=== PATIENT | female | born 1935 | race Caucasian/White ===

== ENCOUNTER 2017-06-26 01:23 | Emergency (ER) | payer OTHER, MEDICAID ==
[2017-06-26 01:31] VITALS: BP 143/77; BMI 28.1
--- NOTE | 2017-06-26 01:54 | DR.GENAD ---
HPI - PCP Primary Care Physician: NIKITA - HPI Comment HPI Comment: PROBLEM STANDING ON LLE. NO BACK PAIN. ABRASION TO LT ELBOW WITH B PAIN. ROM LT ELBOW INTACT. - Complaint/Symptoms Chief Complaint Doctors Comments: FALL TONIGHT. LEFT GROIN AND LT HIP PAIN, LEFT ELBOW ABRSION. NO LOC. Chief Complaint:: PT FELL AT HOME C/O PAIN TO LT GROIN AREA AND ABRASION TOO LT ELBOW - Nurses notes reviewed Nurses Notes Review: Yes - Source History Provided: Patient - Mode of Arrival Mode of Arrival: Wheelchair - Timing Onset of Chief Complaint: 06/26/17 PMH - PMH Past Medical History: Yes Past Medical History: Angina, [place] Past Surgical History: Yes Surgical History: Appendectomy, CABG/Valve Surgery, Cholecystectomy, Hysterectomy, Other Past Surgical History Comment: 3 BACK SURGERY - Family History History of Family Medical Conditions: Yes Family Medical History: Cancer, [place], Coronary Artery Disease, Hypertension - Social History Does patient currently use any type of tobacco product: No Have you used tobacco products in the last 12 months: No Does any household member use tobacco: No Alcohol Use: None Do you use any recreational Drugs:: No Lives With: Family Lives Where: Home - infectious screening In the last 2 months have you had wt loss of >10#?: NO Have you had fever, night sweats or hemotysis?: No Have you traveled outside the country in the last 6 months?: No Isolation: Standard ROS - Review of Systems Constitutional: No Symptoms Reported Eyes: No Symptoms Reported ENTM: No Symptoms Reported Respiratoy: No Symptoms Reported Cardiovascular: No Symptoms Reported Gastrointestinal/Abdominal: No Symptoms Reported Genitourinary: No Symptoms Reported Neurological: No Symptoms Reported Musculoskeletal: Left, Hip Integumentary: Bruises (ABRSION LT ELBOW) Hematologic/Lymphatic: Easy Bleeding, Easy Bruising Endocrine: No Symptoms Reported All Other Systems: Reviewed and Negative PE - Vital Signs Vitals: Temperature 97.7 F Pulse Rate 66 Respiratory Rate 18 Blood Pressure [Left Arm] 118/58 Blood Pressure [Right Arm] 142/67 Blood Pressure 143/77 O2 Sat by Pulse Oximetry 99 - General Limitations: No Limitations General Appearance: Alert - Head Head Exam: Normal Inspection - Eyes Eye exam: Normal Appearance - ENT ENT Exam: Normal External Ear Exam External Ear Exam: Normal External Inspection TM/Canal Exam: Bilateral Normal Nose Exam: Normal Nose Exam Mouth Exam: Normal Inspection Throat Exam: Normal Inspection - Neck Neck Exam: Trachea Midline - Chest Chest Inspection: Symmetric Chest Wall Rise - Respiratory Respiratory Exam: Normal Lung Sounds Bilat Respiratory Exam: Bilateral Rhonchi, Lower Rhonchi - Cardiovascular Cardiovascular Exam: Regular Rate, Normal Rhythm, Normal Heart Sounds - Abdominal Exam Abdominal Exam: Normal Bowel Sounds, Soft. negative: Tenderness - Extremities Extremities Exam: Tenderness (LT HIP, ROM DECREASE.) - Back Back Exam: Normal Inspection - Neurologic Neurological Exam: Alert, Oriented X3 - Psychiatric Psychiatric Exam: Anxious - Skin Skin Exam: Erythema MDM - Differential Diagnosis Differential Diagnosis: CONTUSION, FRATURE, SPRAIN LEFT HIP. SKIN TEAR LE Course - Treatment Treatment: SEE ORDERS. IM PAIN MED IN ED. - Reevaluation 1st: Improved (PAIN DECREASING.) - Education/Counseling Education/Counseling: Patient, Family, Education Educated On: Treatment, Diagnosis, Needs for Follow Up ROR - Labs Reviewed Laboratory Results Reviewed?: Yes Result Diagrams: 06/26/17 02:05 06/26/17 02:05 Laboratory: WBC 9.7 X10^3/uL (3.6-10.0) 06/26/17 02:05 RBC 4.02 X10^6/uL (3.5-5.4) 06/26/17 02:05 Hgb 13.4 g/dL (12.0-16.0) 06/26/17 02:05 Hct 38.7 % (36.0-47.0) 06/26/17 02:05 MCV 96.5 fL (80.0-100.0) 06/26/17 02:05 MCH 33.4 pg (27.0-34.0) 06/26/17 02:05 MCHC 34.7 g/dL (33.0-35.0) 06/26/17 02:05 RDW 13.9 % (11.6-16.5) 06/26/17 02:05 Plt Count 282 X10^3/uL (150.0-450.0) 06/26/17 02:05 MPV 8.0 fL (7.4-11.0) 06/26/17 02:05 Neut % 48.7 % (42.0-75.0) 06/26/17 02:05 Lymph % 42.1 % (21.0-51.0) 06/26/17 02:05 Pershing % 7.5 % (0.0-13.0) 06/26/17 02:05 Eos % 1.0 % (0.9-2.9) 06/26/17 02:05 Baso % 0.7 % (0.2-1.0) 06/26/17 02:05 Neut # 4.7 x10^3/uL (2.2-4.8) 06/26/17 02:05 Lymph # 4.1 X10^3/uL (1.3-2.9) H 06/26/17 02:05 Pershing # 0.7 x10^3/uL (0.3-0.8) 06/26/17 02:05 Eos # 0.1 x10^3/uL (0.0-0.2) 06/26/17 02:05 Baso # 0.1 X10^3/uL (0.0-0.1) 06/26/17 02:05 Absolute Nucleated RBC 0.1 /100WBC 06/26/17 02:05 Sodium 134 mmol/L (136-145) L 06/26/17 02:05 Corrected Sodium 135 mmol/L (136-145) L 06/26/17 02:05 Potassium 4.2 mmol/L (3.5-5.1) 06/26/17 02:05 Chloride 97 mmol/L (98-107) L 06/26/17 02:05 Carbon Dioxide 32.9 mmol/L (21-32) H 06/26/17 02:05 BUN 18 mg/dL (7-18) 06/26/17 02:05 Creatinine 1.06 mg/dL (0.55-1.02) H 06/26/17 02:05 Est GFR (MDRD) Af Amer > 60 (>60) 06/26/17 02:05 Est GFR (MDRD) Non-Af 53 (>60) L 06/26/17 02:05 Glucose 126 mg/dL (65-99) H 06/26/17 02:05 Calcium 8.9 mg/dL (8.5-10.1) 06/26/17 02:05 Corrected Calcium 9.6 mg/dL (8.5-10.1) 06/26/17 02:05 Total Bilirubin 0.20 mg/dL (0.2-1.0) 06/26/17 02:05 AST 20 Units/L (15-37) 06/26/17 02:05 ALT 21 Units/L (12-78) 06/26/17 02:05 Alkaline Phosphatase 53 Units/L (46-116) 06/26/17 02:05 Creatine Kinase 44 Units/L (26-192) 06/26/17 02:05 CK-MB (CK-2) < 1.0 ng/mL (0-4.0) 06/26/17 02:05 CK/CKMB % Calc 2.3 % (<4) 06/26/17 02:05 Troponin I < 0.02 ng/mL (0-1.5) 06/26/17 02:05 Total Protein 7.0 g/dL (6.4-8.2) 06/26/17 02:05 Albumin 3.1 g/dL (3.4-5.0) L 06/26/17 02:05 Globulin 3.9 g/dL (2.5-4.5) 06/26/17 02:05 Albumin/Globulin Ratio 0.8 Ratio (1.1-2.1) L 06/26/17 02:05 - XRAY XRAY Interpreted by: Radiologist XRAY Findings: REPORT DISCUSS WITH PATIENT. - EKG Rhythm: NSR (EKG NOTED) - Diagnosis Discharge Problem: Hip sprain Qualifiers: Encounter type: initial encounter Laterality: left Qualified Code(s): S73.102A - Unspecified sprain of left hip, initial encounter - Discharge Plan Disposition: 01 HOME, SELF-CARE Condition: Stable - Follow ups/Referrals Follow ups/Referrals: Juan Diego Marcus [Primary Care Provider] - 1 day - Instructions Instructions: Hip Pain, Skin Tear Care, [id number] Additional Instructions: return to ed if worse. continue with med for pain you have at home.
[2017-06-26] MEDS ORDERED: ZOFRAN INJ 4 MG VIAL IM ONE (02:02)
--- NOTE | 2017-06-26 02:02 | RAD ---
EXAM: Left hip x-ray INDICATION: Hip Pain COMPARISION: No priors for comparison TECHNIQUE: Two views FINDINGS: No acute fracture or dislocation identified. Moderate degenerative changes are present in both hips. Visualized bones of the pelvis are intact. The proximal right femur is intact. IMPRESSION: No acute abnormality identified. Reported By:
[2017-06-26] MEDS ORDERED: DEMEROL INJ IM ONE (02:06)
[2017-06-26] MEDS ORDERED: ZOFRAN INJ 4 MG VIAL ONE (02:07)
[2017-06-26] MEDS ORDERED: DEMEROL INJ ONE (02:07)
[2017-06-26 02:13] LABS: BASOPHILS # (AUTO) 0.1 X10^3/uL (0.0-0.1); BASOPHILS % (AUTO) 0.7 % (0.2-1.0); EOSINOPHILS # (AUTO) 0.1 x10^3/uL (0.0-0.2); HEMATOCRIT 38.7 % (36.0-47.0); HEMOGLOBIN 13.4 g/dL (12.0-16.0); LYMPHOCYTES # (AUTO) 4.1 X10^3/uL (1.3-2.9); LYMPHOCYTES % (AUTO) 42.1 % (21.0-51.0); MEAN CORPUSCULAR HEMOGLOBIN 33.4 pg (27.0-34.0); MEAN CORPUSCULAR HGB CONC 34.7 g/dL (33.0-35.0); MEAN CORPUSCULAR VOLUME 96.5 fL (80.0-100.0); MONOCYTES # (AUTO) 0.7 x10^3/uL (0.3-0.8); MONOCYTES % (AUTO) 7.5 % (0.0-13.0); NEUTROPHILS # (AUTO) 4.7 x10^3/uL (2.2-4.8); NEUTROPHILS % (AUTO) 48.7 % (42.0-75.0); PLATELET COUNT 282 X10^3/uL (150.0-450.0); RED BLOOD COUNT 4.02 X10^6/uL (3.5-5.4); RED CELL DISTRIBUTION WIDTH 13.9 % (11.6-16.5); WHITE BLOOD COUNT 9.7 X10^3/uL (3.6-10.0)
[2017-06-26 02:28] LABS: BLOOD UREA NITROGEN 18 mg/dL (7-18); CALCIUM 8.9 mg/dL (8.5-10.1); CARBON DIOXIDE 32.9 mmol/L (21-32); CHLORIDE 97 mmol/L (98-107); COR NA(FOR HYPERGLY) 135 mmol/L (136-145); CREATININE 1.06 mg/dL (0.55-1.02); GLUCOSE 126 mg/dL (65-99); SODIUM 134 mmol/L (136-145); TROPONIN I < 0.02 ng/mL (0-1.5); eGFR BLACK RACES > 60 (>60); eGFR NON BLACK RACES 53 (>60)
[2017-06-26 02:33] LABS: ALANINE AMINOTRANSFERASE 21 Units/L (12-78); ALBUMIN 3.1 g/dL (3.4-5.0); ALKALINE PHOSPHATASE 53 Units/L (46-116); ASPARTATE AMINO TRANSFERASE 20 Units/L (15-37); CKMB % 2.3 % (<4); COR CA(FOR HYPOALB) 9.6 mg/dL (8.5-10.1); CREATINE KINASE 44 Units/L (26-192); CREATINE KINASE MB < 1.0 ng/mL (0-4.0)
[2017-06-26] MEDS ORDERED: NEOSPORIN OINT ONE (02:52)
== END 2017-06-26 02:51 | disposition home or self-care (01) ==
LOC: ER 01:23
DX: S73.102A Unspecified sprain of left hip, initial encounter (principal); W19.XXXA Unspecified fall, initial encounter; Y92.009 Unspecified place in unspecified non-institutional (private) residence as the place of occurrence of the external cause; R94.31 Abnormal electrocardiogram [ECG] [EKG]
CPT/HCPCS: 36415; 73501; 80053; 82550; 82553; 84484; 85025; 93005; 96372; 99283; J2175; J2405

== ENCOUNTER 2017-06-26 17:37 | Observation (INO) | payer OTHER, MEDICAID ==
--- NOTE | 2017-06-26 17:55 | CT ---
CT head without contrast Indication: Altered mental status, concern for stroke Comparison: None Technique: CT images of the head were obtained without contrast. Automatic exposure control was util ized. Findings: There is moderate generalized age-appropriate brain atrophy with concomitant ventricular a nd sulcal enlargement. There are patchy areas of periventricular and deep white matter hypoattenuati on, most suggestive for chronic microangiopathy. Old lacunar infarcts of the bilateral basal ganglia are noted. There is left occipital encephalomalacia, consistent with remote infarct. No acute bleed , mass effect, or abnormal extra-axial collection is identified. No acute skeletal abnormality ident ified. The visualized paranasal sinuses and mastoid air cells are clear. Impression: No acute intracranial abnormality is identified. Chronic findings as above. Reported By:
--- NOTE | 2017-06-26 18:17 | DR.AMS ---
HPI - Time Seen Time seen: 18:00 - PCP Primary Care Physician: rajat - Complaint Cheif Complaint Doctors Comments: Pt has been confused today. She was seen in ED last night for a fall. Chief Complaint:: ams. pt will make eye contact and attempt to answer questions but only able to respond with letters, like spelling the word out. does not make sense Self Treatment fo Chief Complaint: pt fell last night around midnight and was seen in the er for that. 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 instead of her normal bedtime dose.) PMH - PMH Past Medical History: Yes Past Medical History: Angina, Arthritis, Coronary Artery Disease, Dyslipidemia, Hypertension, [place], Sleep Apnea Past Surgical History: Yes Surgical History: Abdominal Surgery, Appendectomy, CABG/Valve Surgery, Cholecystectomy, Hysterectomy, Other Past Surgical History Comment: back - Family History History of Family Medical Conditions: Yes Family Medical History: Cancer, [place], Coronary Artery Disease, Hypertension - Social History Does patient currently use any type of tobacco product: No Alcohol Use: None Do you use any recreational Drugs:: No Lives With: Alone Lives Where: Home - infectious screening In the last 2 months have you had wt loss of >10#?: NO Have you had fever, night sweats or hemotysis?: No Have you traveled outside the country in the last 6 months?: No Isolation: Standard ROS - Review of Systems Constitutional: No Symptoms Reported Eyes: No Symptoms Reported ENTM: No Symptoms Reported Respiratoy: No Symptoms Reported Cardiovascular: No Symptoms Reported Gastrointestinal/Abdominal: No Symptoms Reported Genitourinary: No Symptoms Reported Neurological: Other (more lethargic today per family) Musculoskeletal: Right, Left (pain), Hip Integumentary: No Symptoms Reported Hematologic/Lymphatic: No Symptoms Reported Endocrine: No Symptoms Reported Psychiatric: No Symptoms Reported All Other Systems: Reviewed and Negative PE - Vitals Vital Signs: Pulse Pulse Resp BP BP BP Pulse Ox 06/26/17 20:03 100 H 16 106/51 94 L 06/26/17 17:42 105 H 20 126/76 73 L 06/26/17 01:25 143/77 05/26/15 08:00 142/67 09/21/14 12:00 118/58 - General Limitations: No Limitations General Appearance: Alert, In No Apparent Distress - Head Head Exam: Normal Inspection, Atraumatic - Eyes Eye exam: Normal Appearance, PERRL, EOMI - ENT ENT Exam: Normal Exam, Normal Oropharynx, Mucous Membranes Moist External Ear Exam: Normal External Inspection TM/Canal Exam: Bilateral Normal Nose Exam: Normal Nose Exam Mouth Exam: Normal Inspection Throat Exam: Normal Inspection - Neck Neck Exam: Normal Inspection, Full ROM, Trachea Midline - Chest Chest Inspection: Normal Inspection - Respiratory Respiratory Exam: Normal Lung Sounds Bilat Respiratory Exam: Bilateral Clear to Auscultation - Cardiovascular Cardiovascular Exam: Regular Rate, Normal Rhythm, Normal Heart Sounds - Abdominal Exam Abdominal Exam: Normal Inspection, Normal Bowel Sounds - Extremities Extremities Exam: Normal Inspection - Back Back Exam: Normal Inspection - Neurological Neurological Exam: Alert, Oriented X3 (oriented to person and place), CN II-XII Intact Speech: Fluid Speech Cranial Nerve Exam: EOM Function (II, III, IV, ): Normal, Facial Sensation (V) : Normal, Facial Palsy (VII): Normal, Gag reflex (XI): Normal, Spinal Accessory Function (XI): Normal, Tongue Deviation: Normal - Psychological Psychiatric Exam: Normal Affect, Normal Mood - Skin Skin Exam: Warm, Dry, Intact, Normal Color ROR - Labs Reviewed Result Diagrams: 06/26/17 18:17 06/26/17 18:17 Laboratory: WBC 11.0 X10^3/uL (3.6-10.0) H 06/26/17 18:17 RBC 4.09 X10^6/uL (3.5-5.4) 06/26/17 18:17 Hgb 13.7 g/dL (12.0-16.0) 06/26/17 18:17 Hct 39.8 % (36.0-47.0) 06/26/17 18:17 MCV 97.2 fL (80.0-100.0) 06/26/17 18:17 MCH 33.4 pg (27.0-34.0) 06/26/17 18:17 MCHC 34.3 g/dL (33.0-35.0) 06/26/17 18:17 RDW 13.9 % (11.6-16.5) 06/26/17 18:17 Plt Count 290 X10^3/uL (150.0-450.0) 06/26/17 18:17 MPV 7.7 fL (7.4-11.0) 06/26/17 18:17 Neut % 70.3 % (42.0-75.0) 06/26/17 18:17 Lymph % 21.1 % (21.0-51.0) 06/26/17 18:17 [place] % 6.3 % (0.0-13.0) 06/26/17 18:17 Eos % 1.7 % (0.9-2.9) 06/26/17 18:17 Baso % 0.6 % (0.2-1.0) 06/26/17 18:17 Neut # 7.7 x10^3/uL (2.2-4.8) H 06/26/17 18:17 Lymph # 2.3 X10^3/uL (1.3-2.9) 06/26/17 18:17 [place] # 0.7 x10^3/uL (0.3-0.8) 06/26/17 18:17 Eos # 0.2 x10^3/uL (0.0-0.2) 06/26/17 18:17 Baso # 0.1 X10^3/uL (0.0-0.1) 06/26/17 18:17 Absolute Nucleated RBC 0.0 /100WBC 06/26/17 18:17 D-Dimer > 5000 ng/mL (0-400) H* 06/26/17 18:17 Sodium 132 mmol/L (136-145) L 06/26/17 18:17 Corrected Sodium TNP 06/26/17 18:17 Potassium 5.1 mmol/L (3.5-5.1) 06/26/17 18:17 Chloride 98 mmol/L (98-107) 06/26/17 18:17 Carbon Dioxide 32.3 mmol/L (21-32) H 06/26/17 18:17 BUN 24 mg/dL (7-18) H 06/26/17 18:17 Creatinine 1.35 mg/dL (0.55-1.02) H 06/26/17 18:17 Est GFR (MDRD) Af Amer 48 (>60) L 06/26/17 18:17 Est GFR (MDRD) Non-Af 40 (>60) L 06/26/17 18:17 Glucose 110 mg/dL (65-99) H 06/26/17 18:17 Calcium 9.9 mg/dL (8.5-10.1) 06/26/17 18:17 Corrected Calcium 10.6 mg/dL (8.5-10.1) H 06/26/17 18:17 Total Bilirubin 0.50 mg/dL (0.2-1.0) 06/26/17 18:17 AST 22 Units/L (15-37) 06/26/17 18:17 ALT 22 Units/L (12-78) 06/26/17 18:17 Alkaline Phosphatase 55 Units/L (46-116) 06/26/17 18:17 Creatine Kinase 43 Units/L (26-192) 06/26/17 18:17 CK-MB (CK-2) < 1.0 ng/mL (0-4.0) 06/26/17 18:17 CK/CKMB % Calc 2.3 % (<4) 06/26/17 18:17 Troponin I 0.04 ng/mL (0-1.5) 06/26/17 18:17 Total Protein 7.1 g/dL (6.4-8.2) 06/26/17 18:17 Albumin 3.1 g/dL (3.4-5.0) L 06/26/17 18:17 Globulin 4.0 g/dL (2.5-4.5) 06/26/17 18:17 Albumin/Globulin Ratio 0.8 Ratio (1.1-2.1) L 06/26/17 18:17 Specimen Type Catherized urine 06/26/17 18:45 Urine Color Yellow (YELLOW) 06/26/17 18:45 Urine Appearance Clear (CLEAR) 06/26/17 18:45 Urine pH 6.0 (5.0 - 8.0) 06/26/17 18:45 Ur Specific [place] 1.015 (1.000-1.030) 06/26/17 18:45 Urine Protein Negative (NEGATIVE) 06/26/17 18:45 Urine Glucose (UA) Negative (NEGATIVE) 06/26/17 18:45 Urine Ketones Negative (NEGATIVE) 06/26/17 18:45 Urine Occult Blood Negative (NEGATIVE) 06/26/17 18:45 Urine Nitrite Negative (NEGATIVE) 06/26/17 18:45 Urine Bilirubin Negative (NEGATIVE) 06/26/17 18:45 Urine Urobilinogen Normal (NORMAL) 06/26/17 18:45 Ur Leukocyte Esterase 1+ (NEGATIVE) 06/26/17 18:45 Urine RBC None seen /HPF (NEGATIVE) 06/26/17 18:45 Urine WBC 0-2 /HPF (NEGATIVE) 06/26/17 18:45 Ur Squamous Epith Cells Rare /HPF (NEGATIVE) 06/26/17 18:45 Amorphous Sediment Trace /HPF (NEGATIVE) 06/26/17 18:45 Urine Bacteria Trace /HPF (NEGATIVE) 06/26/17 18:45 Ur Culture Indicated? No/not indicated 06/26/17 18:45 - Diagnosis Discharge Problem: Fall, Altered mental status, nondisplaced, impacted subcapital femora Narrative Support Text: nondisplaced, impacted subcapital fracture of l femoral neck - Discharge Plan Condition: Stable - Follow ups/Referrals Follow ups/Referrals: Juan Diego Marcus [Primary Care Provider] - 3 days - Instructions Instructions: Femoral Neck (Hip) Stress Fracture-SportsMed
[2017-06-26 18:25] LABS: BASOPHILS # (AUTO) 0.1 X10^3/uL (0.0-0.1); BASOPHILS % (AUTO) 0.6 % (0.2-1.0); EOSINOPHILS # (AUTO) 0.2 x10^3/uL (0.0-0.2); EOSINOPHILS % (AUTO) 1.7 % (0.9-2.9); HEMATOCRIT 39.8 % (36.0-47.0); HEMOGLOBIN 13.7 g/dL (12.0-16.0); LYMPHOCYTES # (AUTO) 2.3 X10^3/uL (1.3-2.9); LYMPHOCYTES % (AUTO) 21.1 % (21.0-51.0); MEAN CORPUSCULAR HEMOGLOBIN 33.4 pg (27.0-34.0); MEAN CORPUSCULAR HGB CONC 34.3 g/dL (33.0-35.0); MEAN CORPUSCULAR VOLUME 97.2 fL (80.0-100.0); MEAN PLATELET VOLUME 7.7 fL (7.4-11.0); MONOCYTES # (AUTO) 0.7 x10^3/uL (0.3-0.8); MONOCYTES % (AUTO) 6.3 % (0.0-13.0); NEUTROPHILS # (AUTO) 7.7 x10^3/uL (2.2-4.8); NEUTROPHILS % (AUTO) 70.3 % (42.0-75.0); PLATELET COUNT 290 X10^3/uL (150.0-450.0); RED BLOOD COUNT 4.09 X10^6/uL (3.5-5.4); RED CELL DISTRIBUTION WIDTH 13.9 % (11.6-16.5)
[2017-06-26 18:43] LABS: BLOOD UREA NITROGEN 24 mg/dL (7-18); CALCIUM 9.9 mg/dL (8.5-10.1); CARBON DIOXIDE 32.3 mmol/L (21-32); CHLORIDE 98 mmol/L (98-107); CREATININE 1.35 mg/dL (0.55-1.02); GLUCOSE 110 mg/dL (65-99); SODIUM 132 mmol/L (136-145); TROPONIN I 0.04 ng/mL (0-1.5); eGFR BLACK RACES 48 (>60); eGFR NON BLACK RACES 40 (>60)
[2017-06-26 18:49] LABS: ALANINE AMINOTRANSFERASE 22 Units/L (12-78); ALBUMIN 3.1 g/dL (3.4-5.0); ALKALINE PHOSPHATASE 55 Units/L (46-116); ASPARTATE AMINO TRANSFERASE 22 Units/L (15-37); CKMB % 2.3 % (<4); COR CA(FOR HYPOALB) 10.6 mg/dL (8.5-10.1); CREATINE KINASE 43 Units/L (26-192); CREATINE KINASE MB < 1.0 ng/mL (0-4.0); TOTAL PROTEIN 7.1 g/dL (6.4-8.2)
[2017-06-26 18:56] LABS: BILIRUBIN,URINE NEGATIVE (NEGATIVE); BLOOD/HEMOGLOBIN,URINE NEGATIVE (NEGATIVE); GLUCOSE, URINE NEGATIVE (NEGATIVE); KETONES,URINE NEGATIVE (NEGATIVE); LEUKOCYTE ESTERASE ,URINE 1+ (NEGATIVE); NITRITES,URINE NEGATIVE (NEGATIVE); PROTEIN,URINE NEGATIVE (NEGATIVE); UROBILINOGEN,URINE NORMAL (NORMAL)
[2017-06-26] MEDS ORDERED: NS 500 ML IV 500 ML IV ONE ×2 (18:59→19:09)
[2017-06-26 19:02] LABS: COLOR,URINE YELLOW (YELLOW)
[2017-06-26 19:03] LABS: AMORPHOUS SEDIMENT,UR TRACE /HPF (NEGATIVE); APPEARANCE,URINE CLEAR (CLEAR); BACTERIA,URINE TRACE /HPF (NEGATIVE); RBC,URINE NONE SEEN /HPF (NEGATIVE); SQUAMOUS EPITHELIAL CELL,UR RARE /HPF (NEGATIVE)
[2017-06-26 19:06] LABS: D DIMER > 5000 ng/mL (0-400)
--- NOTE | 2017-06-26 19:12 | CT ---
CT pelvis without contrast Indication: Left hip pain after fall Comparison: None available Technique: Multiple axial images of the pelvis were obtained from the iliac crest to the proximal th igh without administration of IV contrast. Sagittal and coronal reformats were performed and review ed. Radiation dose reduction techniques were performed utilizing adjustment for MA/kVP based on patient body size. Findings: There is a nondisplaced, impacted left subcapital femoral neck fracture. No other fracture identified within the pelvis or sacrum. Moderate degenerative change within both f emoral acetabular and SI joints. Degenerative changes also noted within pubic symphysis joint. Osteo penia is noted throughout the pelvis. A Mendez catheter is noted in place within the urinary bladder. Impression: Nondisplaced, impacted left subcapital femoral neck fracture. Reported By:
[2017-06-26] MEDS ORDERED: ZOFRAN INJ 4 MG VIAL ONE (19:25)
[2017-06-26] MEDS ORDERED: FENTANYL INJ 100 mcg IVP ONE (19:31)
[2017-06-26] MEDS ORDERED: ZOFRAN INJ 4 MG VIAL IVP ONE (19:33)
[2017-06-26] MEDS ORDERED: DILAUDID INJ ONE (19:36)
[2017-06-26] MEDS ORDERED: DILAUDID INJ IVP ONE (19:37)
[2017-06-26] MEDS ORDERED: ZOFRAN INJ 4 MG VIAL IVP PRN (23:02)
[2017-06-26] MEDS ORDERED: NS 1000 ML 1,000 ML IV PRN (23:04)
[2017-06-27 00:09] VITALS: BMI 29.6
[2017-06-27] MEDS: DILAUDID INJ IVP PRN ×6 (03:57→18:58)
[2017-06-27 06:10] LABS: BASOPHILS % (AUTO) 0.4 % (0.2-1.0); EOSINOPHILS # (AUTO) 0.1 x10^3/uL (0.0-0.2); EOSINOPHILS % (AUTO) 1.2 % (0.9-2.9); HEMATOCRIT 38.1 % (36.0-47.0); HEMOGLOBIN 12.9 g/dL (12.0-16.0); LYMPHOCYTES # (AUTO) 2.1 X10^3/uL (1.3-2.9); LYMPHOCYTES % (AUTO) 18.9 % (21.0-51.0); MEAN CORPUSCULAR HEMOGLOBIN 33.3 pg (27.0-34.0); MEAN CORPUSCULAR HGB CONC 33.9 g/dL (33.0-35.0); MEAN CORPUSCULAR VOLUME 98.3 fL (80.0-100.0); MEAN PLATELET VOLUME 8.9 fL (7.4-11.0); MONOCYTES # (AUTO) 0.7 x10^3/uL (0.3-0.8); MONOCYTES % (AUTO) 6.1 % (0.0-13.0); NEUTROPHILS # (AUTO) 8.2 x10^3/uL (2.2-4.8); NEUTROPHILS % (AUTO) 73.4 % (42.0-75.0); PLATELET COUNT 268 X10^3/uL (150.0-450.0); RED BLOOD COUNT 3.88 X10^6/uL (3.5-5.4); RED CELL DISTRIBUTION WIDTH 13.8 % (11.6-16.5); WHITE BLOOD COUNT 11.2 X10^3/uL (3.6-10.0)
[2017-06-27 06:30] LABS: ALANINE AMINOTRANSFERASE 19 Units/L (12-78); ALBUMIN 2.8 g/dL (3.4-5.0); ALKALINE PHOSPHATASE 53 Units/L (46-116); ASPARTATE AMINO TRANSFERASE 23 Units/L (15-37); BLOOD UREA NITROGEN 21 mg/dL (7-18); CALCIUM 8.8 mg/dL (8.5-10.1); CARBON DIOXIDE 28.1 mmol/L (21-32); CHLORIDE 101 mmol/L (98-107); COR CA(FOR HYPOALB) 9.8 mg/dL (8.5-10.1); GLUCOSE 102 mg/dL (65-99); SODIUM 135 mmol/L (136-145); TOTAL PROTEIN 6.6 g/dL (6.4-8.2); eGFR BLACK RACES > 60 (>60); eGFR NON BLACK RACES 51 (>60)
[2017-06-27] MEDS ORDERED: ELAVIL PO SCH ×2 (10:00→21:00)
[2017-06-27] MEDS ORDERED: COREG TAB 3.125 MG PO SCH (11:00)
[2017-06-27 14:35] VITALS: BP 141/65
[2017-06-27] MEDS ORDERED: ZESTRIL TAB 5 MG PO SCH (21:00)
--- NOTE | 2017-07-03 13:24 | DR.CARTERS ---
Short Stay Summary - Admission Date Date of Admission: 06/26/17 - Discharge Date Discharge Date: 06/27/17 - Hospital Course Hospital Course: DAY 1 OF STAY: IS A 81 YEAR OLD PATIENT OF OURS WHO WAS BROUGHT TO THE EMERGENCY ROOM BY EMS FOR COMPLAINTS OF LEFT HIP PAIN FOLLOWING A FALL AND ALTERED MENTAL STATUS. PATIENT'S FAMILY REPORTS THAT PATIENT WILL MAKE EYE CONTACT AND TRY TO SPEAK AND ANSWER QUESTIONS, BUT ONLY RESPONDS BY SPELLING WORDS OUT. FAMILY REPORTS THAT PATIENT USUALLY TAKES HER PAIN MEDICATION AT NIGHT, BUT ACCIDENTLY TOOK IT AT 10AM. THEY BELIEVE THIS IS WHY PATIENT FELL. ON ARRIVAL TO ER, VITALS ARE 105-20-94%-126/76. CBC WNL EXCEPT WBC 11.0. CMP WNL EXCEPT SODIUM 132, CARBON DIOXIDE 32.3, BUN 24, CREATININE 1.35, GLUCOSE 110 , ALBUMIN 3.1. D-DIMER GREATER THAN 5000. PELVIS CT REPORTED NONDISPLACED, IMPACTED LEFT SUBCAPITAL FEMORAL NECK FX. PATIENT WAS GIVEN A NS BOLUS, DILAUDID 1MG IVP, AN ZOFRAN 8MG IVP IN ER. IMPROVEMENT IN PAIN NOTED. WE ADMITTED THE PATIENT FOR FURTHER TREATMENT AND EVALUATION. WE PLANNED TO RECHECK LABS AND FOLLOW UP WITH PATIENT IN AM. DAY 2 OF STAY, PATIENT IS ALERT AND ORIENTED ON MORNING ROUNDS. FAMILY AT BEDSIDE. SHE IS NOTED WITH COMPLAINTS OF LEFT HIP PAIN. PATIENT AND FAMILY REQUEST TO BE TRANSFERRED FOR ORTHOPEDIC CONSULT DUE TO PATIENT'S EXTENSIVE CARDIAC HISTORY. WE ARE IN AGREEMENT WITH FAMILY'S WISHES. VITALS THIS AM WERE 98.6-93-20-96%-117/54. CBC WNL EXCEPT WBC 11.2. CMP WNL EXCEPT SODIUM 135, BUN 21, CREATININE 1.10, GLUCOSE 102, ALBUMIN 2.8. WE INCREASED DILAUDID TO 2MG IV Q2H PRN AND STARTED FENTANYL 25MCG PATCH. WE CONTACTED [facility] IN [place]. ACCEPTED PATIENT. PATIENT WAS TRANSFERRED IN STABLE CONDITION VIA EMS TO [facility] FOR ORTHOPEDIC CONSULT AND CARDIAC CLEARANCE. - Discharge Medications Discharge Medications: Amitriptyline HCl [Elavil] 10 mg PO DAILY 06/26/17 [History] Carvedilol [Carvedilol] 3.125 mg PO BID 06/26/17 [History] - Discharge Plan Disposition: XF [facility] HOSP Condition: Stable - Follow up/Referrals Follow up/Referrals: Juan Diego Marcus [Primary Care Provider] - 3 days - Instructions Instructions: Femoral Neck (Hip) Stress Fracture-SportsMed
== END 2017-06-27 19:05 | disposition short-term general hospital (02) ==
LOC: ER 17:37 → MED/SURG 22:02
PROVIDERS: ADMIT Internal Medicine; ATTEND Internal Medicine
DX: S72.012A Unspecified intracapsular fracture of left femur, initial encounter for closed fracture (principal); W18.39XA Other fall on same level, initial encounter; R41.82 Altered mental status, unspecified; I25.10 Atherosclerotic heart disease of native coronary artery without angina pectoris; M13.89 Other specified arthritis, multiple sites; I10 Essential (primary) hypertension; Y92.89 Other specified places as the place of occurrence of the external cause; R94.31 Abnormal electrocardiogram [ECG] [EKG]; R94.4 Abnormal results of kidney function studies; E87.1 Hypo-osmolality and hyponatremia; Z79.1 Long term (current) use of non-steroidal anti-inflammatories (NSAID)
CPT/HCPCS: 36415; 51702; 70450; 72192; 73501; 80053; 81001; 82550; 82553; 84484; 85025; 85378; 93005; 94760; 96365; 96372; 96374; 96375; 99283; 99284; A4222; G0378; J2175; J2405

== ENCOUNTER 2018-05-11 18:47 | Inpatient (IN) ==
--- NOTE | 2018-05-11 19:34 | CT ---
Indication: Fall and pain Exam: CT head without contrast. Technique: Routine transaxial images were obtained through the brain without contrast. Comparison: 06/26/2017 Findings: The ventricles are mildly enlarged and there is diffuse moderate prominence of the cortical sulci which is unchanged. There is mild periventricular low density bilaterally with small old lacun ar infarcts scattered in the basal ganglia inferiorly which is unchanged. There is an old subcortical infarct along the left occipital horn posteriorly which is unchanged. No intracranial hemorrhage or edema is seen and there is no extra-axial fluid collection or mass. No fracture is seen. The midline structures are unremarkable. 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 Reported By:
[2018-05-11 19:35] LABS: BASOPHILS # (AUTO) 0.1 X10^3/uL (0.0-0.1); BASOPHILS % (AUTO) 0.7 % (0.2-1.0); EOSINOPHILS # (AUTO) 0.2 x10^3/uL (0.0-0.2); EOSINOPHILS % (AUTO) 1.9 % (0.9-2.9); HEMATOCRIT 34.1 % (36.0-47.0); HEMOGLOBIN 11.8 g/dL (12.0-16.0); LYMPHOCYTES # (AUTO) 5.1 X10^3/uL (1.3-2.9); LYMPHOCYTES % (AUTO) 49.2 % (21.0-51.0); MEAN CORPUSCULAR HEMOGLOBIN 32.3 pg (27.0-34.0); MEAN CORPUSCULAR HGB CONC 34.4 g/dL (33.0-35.0); MEAN CORPUSCULAR VOLUME 93.8 fL (80.0-100.0); MEAN PLATELET VOLUME 8.3 fL (7.4-11.0); MONOCYTES # (AUTO) 1.1 x10^3/uL (0.3-0.8); MONOCYTES % (AUTO) 11.1 % (0.0-13.0); NEUTROPHILS # (AUTO) 3.8 x10^3/uL (2.2-4.8); NEUTROPHILS % (AUTO) 37.1 % (42.0-75.0); PLATELET COUNT 262 X10^3/uL (150.0-450.0); RED BLOOD COUNT 3.64 X10^6/uL (3.5-5.4); RED CELL DISTRIBUTION WIDTH 14.1 % (11.6-16.5); WHITE BLOOD COUNT 10.3 X10^3/uL (3.6-10.0)
[2018-05-11 19:54] LABS: BLOOD UREA NITROGEN 44 mg/dL (7-18); CARBON DIOXIDE 30.2 mmol/L (21-32); CHLORIDE 102 mmol/L (98-107); COR NA(FOR HYPERGLY) 137 mmol/L (136-145); CREATININE 1.87 mg/dL (0.55-1.02); SODIUM 136 mmol/L (136-145); TROPONIN I < 0.02 ng/mL (0-1.5); eGFR NON BLACK RACES 27 (>60)
[2018-05-11 19:58] LABS: ALANINE AMINOTRANSFERASE 16 Units/L (12-78); ALBUMIN 2.7 g/dL (3.4-5.0); ALKALINE PHOSPHATASE 56 Units/L (46-116); ASPARTATE AMINO TRANSFERASE 21 Units/L (15-37); CREATINE KINASE 189 Units/L (26-192); CREATINE KINASE MB 1.8 ng/mL (0-4.0); TOTAL PROTEIN 6.5 g/dL (6.4-8.2)
--- NOTE | 2018-05-11 20:03 | DR.GENAD ---
HPI - PCP Primary Care Physician: rajat - Complaint/Symptoms Chief Complaint Doctors Comments: Patient presents with complaint of weakness, not sure as to etiology. Concern that she may have taken wrong dose of medication. She is alert but hypotensive Chief Complaint:: pt c/o weakness for a few days. unknown if pt may have taken a 25 mg coreg instead of the 3.125mg she is suppose to take. - Source History Provided: Patient - Mode of Arrival Mode of Arrival: EMS - Timing Onset of Chief Complaint: 05/08/18 PMH - PMH Past Medical History: Yes Past Medical History: Angina, Arthritis, Coronary Artery Disease, Dyslipidemia, Hypertension, [place], Sleep Apnea Past Surgical History: Yes Surgical History: Abdominal Surgery, Angioplasty/Stents, Appendectomy, CABG/ Valve Surgery, Cholecystectomy, Hysterectomy, Other - Family History History of Family Medical Conditions: Yes Family Medical History: Cancer, [place], Coronary Artery Disease, Hypertension - Social History Does any household member use tobacco: No Alcohol Use: None Do you use any recreational Drugs:: No Lives With: Alone Lives Where: Home - infectious screening In the last 2 months have you had wt loss of >10#?: NO Have you had fever, night sweats or hemotysis?: No Have you traveled outside the country in the last 6 months?: No Isolation: Standard ROS - Review of Systems Constitutional: See HPI Eyes: No Symptoms Reported ENTM: No Symptoms Reported Respiratoy: No Symptoms Reported Cardiovascular: No Symptoms Reported Gastrointestinal/Abdominal: No Symptoms Reported Genitourinary: No Symptoms Reported Neurological: No Symptoms Reported Musculoskeletal: No Symptoms Reported Integumentary: No Symptoms Reported Hematologic/Lymphatic: No Symptoms Reported Endocrine: No Symptoms Reported Psychiatric: No Symptoms Reported All Other Systems: Reviewed and Negative PE - General General Appearance: Alert, In No Apparent Distress - Head Head Exam: Normal Inspection, Atraumatic - Eyes Eye exam: Normal Appearance, PERRL, EOMI - ENT ENT Exam: Normal Exam External Ear Exam: Normal External Inspection TM/Canal Exam: Bilateral Normal Nose Exam: Normal Nose Exam Mouth Exam: Normal Inspection Throat Exam: Normal Inspection - Neck Neck Exam: Normal Inspection, Full ROM - Chest Chest Inspection: Normal Inspection, Symmetric Chest Wall Rise - Respiratory Respiratory Exam: Normal Lung Sounds Bilat Respiratory Exam: Bilateral Clear to Auscultation - Cardiovascular Cardiovascular Exam: Regular Rate, Normal Rhythm - Abdominal Exam Abdominal Exam: Normal Inspection, Normal Bowel Sounds Abdominal Tenderness: negative: RUQ, RLQ, LUQ, LLQ, Epigastrium, Suprapubic, Diffuse, Mild, Moderate, Severe, Other - Extremities Extremities Exam: Normal Inspection, Full ROM - Back Back Exam: Normal Inspection, Full ROM - Neurologic Neurological Exam: Alert, Oriented X3, CN II-XII Intact - Psychiatric Psychiatric Exam: Normal Affect, Normal Mood - Skin Skin Exam: Warm, Dry, Intact - Vital Signs Vitals: Temperature 98.8 F Pulse Rate 86 Respiratory Rate 20 Blood Pressure [Left Arm] 141/65 Blood Pressure [Right Arm] 116/55 Blood Pressure 89/46 O2 Sat by Pulse Oximetry 93 Course - Reevaluation 1st: Improved - Consultation Called: 18:40 (Dr Marcus agreed to admit for further management) ROR - Labs Reviewed Result Diagrams: 05/11/18 19:28 05/11/18 19: - XRAY XRAY Interpreted by: Radiologist (CT Brain w/o: The ventricles are mildly enlarged and there is diffuse moderate prominence of the cortical sulci which is unchanged. There is mild periventricular low density bilaterally with small old lacunar infarcts scattered in the basal ganglia inferiorly which is unchanged. There is an old subcortical infarct along the left occipital horn posteriorly which is unchanged. No intracranial hemorrhage or edema is seen and there is no extra axial fluid collection or mass. No fracture is seen. The midline structures are unremarkable. 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 which is unchanged with no acute abnormality seen.) - Labs Reviewed Laboratory: WBC 10.3 X10^3/uL (3.6-10.0) H 05/11/18 19: RBC 3.64 X10^6/uL (3.5-5.4) 05/11/18 19: Hgb 11.8 g/dL (12.0-16.0) L 05/11/18: Hct 34.1 % (36.0-47.0) L 05/11/18: MCV 93.8 fL (80.0-100.0) 05/11/18 19: MCH 32.3 pg (27.0-34.0) 05/11/18: MCHC 34.4 g/dL (33.0-35.0) 05/11/18 19:28 RDW 14.1 % (11.6-16.5) 05/11/18 19:28 Plt Count 262 X10^3/uL (150.0-450.0) 05/11/18 19:28 MPV 8.3 fL (7.4-11.0) 05/11/18 19:28 Neut % (Auto) 37.1 % (42.0-75.0) L 05/11/18 19:28 Lymph % (Auto) 49.2 % (21.0-51.0) 05/11/18 19:28 [place] % (Auto) 11.1 % (0.0-13.0) 05/11/18 19:28 Eos % (Auto) 1.9 % (0.9-2.9) 05/11/18 19: Baso % (Auto) 0.7 % (0.2-1.0) 05/11/18 19:28 Neut # (Auto) 3.8 x10^3/uL (2.2-4.8) 05/11/18 19:28 Lymph # (Auto) 5.1 X10^3/uL (1.3-2.9) H 05/11/18 19:28 [place] # (Auto) 1.1 x10^3/uL (0.3-0.8) H 05/11/18 19:28 Eos # (Auto) 0.2 x10^3/uL (0.0-0.2) 05/11/18 19:28 Baso # (Auto) 0.1 X10^3/uL (0.0-0.1) 05/11/18 19:28 Absolute Nucleated RBC 0.0 /100WBC 05/11/18 19:28 - Diagnosis Discharge Problem: Bradycardia, sinus - Discharge Plan Condition: Stable
[2018-05-11] MEDS ORDERED: PROVENTIL NEB TX 0.083% 2.5MG/ 3ML NEB ONE (20:08)
[2018-05-11] MEDS ORDERED: NS 1000 ML 1,000 ML IV ONE ×2 (20:15→21:05)
[2018-05-11] MEDS ORDERED: PROVENTIL NEB TX 0.083% 2.5MG/ 3ML ONE (20:20)
[2018-05-11] MEDS ORDERED: NS 1000 ML 1,000 ML ONE ×2 (20:36→21:01)
[2018-05-11] MEDS: DOPAMINE IV PREMIX 400 MG/250 ML 400 MG/250 ML BAG IV PRN (21:15)
[2018-05-11] MEDS ORDERED: DOPAMINE IV PREMIX 400 MG/250 ML 400 MG/250 ML BAG IV ONE (21:19)
[2018-05-11] MEDS: NS 1000 ML 1,000 ML IV SCH (22:00)
[2018-05-11 23:45] LABS: BILIRUBIN,URINE 1+ (NEGATIVE); BLOOD/HEMOGLOBIN,URINE 1+ (NEGATIVE); GLUCOSE, URINE NEGATIVE (NEGATIVE); KETONES,URINE NEGATIVE (NEGATIVE); LEUKOCYTE ESTERASE ,URINE 1+ (NEGATIVE); PROTEIN,URINE NEGATIVE (NEGATIVE); UROBILINOGEN,URINE 1+ (NORMAL)
[2018-05-12 00:19] LABS: APPEARANCE,URINE CLEAR (CLEAR); COLOR,URINE AMBER (YELLOW)
[2018-05-12 00:20] LABS: AMORPHOUS SEDIMENT,UR 2+ /HPF (NEGATIVE); BACTERIA,URINE NEGATIVE /HPF (NEGATIVE); NITRITES,URINE POSITIVE (NEGATIVE); RBC,URINE NONE SEEN /HPF (NONE SEEN); SQUAMOUS EPITHELIAL CELL,UR RARE /HPF (NEGATIVE)
[2018-05-12 01:28] VITALS: BMI 31.4
[2018-05-12 02:13] LABS: CKMB % 0.9 % (<4); CREATINE KINASE 265 Units/L (26-192); CREATINE KINASE MB 2.4 ng/mL (0-4.0); TROPONIN I < 0.02 ng/mL (0-1.5)
[2018-05-12] MEDS: DOPAMINE IV PREMIX 400 MG/250 ML 400 MG/250 ML BAG IV PRN ×2 (03:47→15:40)
[2018-05-12 06:46] LABS: BASOPHILS % (AUTO) 0.3 % (0.2-1.0); EOSINOPHILS # (AUTO) 0.3 x10^3/uL (0.0-0.2); EOSINOPHILS % (AUTO) 2.2 % (0.9-2.9); HEMATOCRIT 35.6 % (36.0-47.0); HEMOGLOBIN 12.2 g/dL (12.0-16.0); LYMPHOCYTES # (AUTO) 3.4 X10^3/uL (1.3-2.9); LYMPHOCYTES % (AUTO) 29.6 % (21.0-51.0); MEAN CORPUSCULAR HEMOGLOBIN 32.3 pg (27.0-34.0); MEAN CORPUSCULAR HGB CONC 34.2 g/dL (33.0-35.0); MEAN CORPUSCULAR VOLUME 94.3 fL (80.0-100.0); MEAN PLATELET VOLUME 8.9 fL (7.4-11.0); MONOCYTES # (AUTO) 1.6 x10^3/uL (0.3-0.8); MONOCYTES % (AUTO) 14.2 % (0.0-13.0); NEUTROPHILS # (AUTO) 6.1 x10^3/uL (2.2-4.8); NEUTROPHILS % (AUTO) 53.7 % (42.0-75.0); PLATELET COUNT 250 X10^3/uL (150.0-450.0); RED BLOOD COUNT 3.77 X10^6/uL (3.5-5.4); RED CELL DISTRIBUTION WIDTH 13.9 % (11.6-16.5); WHITE BLOOD COUNT 11.5 X10^3/uL (3.6-10.0)
[2018-05-12 07:13] LABS: CKMB % 0.9 % (<4); CREATINE KINASE 235 Units/L (26-192); CREATINE KINASE MB 2.2 ng/mL (0-4.0); TROPONIN I < 0.02 ng/mL (0-1.5)
[2018-05-12] MEDS ORDERED: CYCLOBENZAPRINE 5 MG PO PRN (11:13)
[2018-05-12] MEDS ORDERED: VALIUM PO PRN (11:13)
[2018-05-12] MEDS ORDERED: METHADONE 10 MG PO PRN (11:13)
[2018-05-12] MEDS ORDERED: XANAX PO PRN (11:13)
[2018-05-12] MEDS ORDERED: PATIENT'S HOME MEDICATION (Rivaroxaban [Xarelto] 20 MG) PO SCH (11:30)
[2018-05-12] MEDS ORDERED: FLEXERIL TAB 10 MG PO PRN (11:31)
[2018-05-12] MEDS: ELAVIL PO SCH ×2 (13:10→20:39)
[2018-05-12 13:36] LABS: ALBUMIN 2.4 g/dL (3.4-5.0); CALCIUM 8.4 mg/dL (8.5-10.1); CARBON DIOXIDE 23.5 mmol/L (21-32); COR CA(FOR HYPOALB) 9.7 mg/dL (8.5-10.1); CREATININE 1.19 mg/dL (0.55-1.02); TOTAL PROTEIN 6.1 g/dL (6.4-8.2)
--- NOTE | 2018-05-12 14:26 | DR.H&P ---
H&P - History & Physical for Day of: H&P Date: 05/11/18 - Chief Complaint Chief Complaint: GENERALIZED WEAKNESS - History of Present Illness History of Present Illness: IS A 82 YEAR OLD PATIENT OF OURS WHO PRESENTED TO THE EMERGENCY ROOM WITH COMPLAINTS OF WEAKNESS. PATIENT REPORTS THAT SYMPTOMS STARTED A FEW DAYS AGO. FAMILY REPORTS THAT THEY ARE CONCERNED THAT PATIENT MAY HAVE TAKEN THE WRONG DOSAGE OF BLOOD PRESSURE MEDICTATION. ON ARRIVAL, SHE IS NOTED TO BE HYPOTENSIVE. VITALS WERE 98.8-86-20-93%-89/46. LABS WERE OBTAINED. ABNORMAL LAB VALUES INCLUDE THE FOLLOWING: WBC 10.3, HGB 11.8, HCT 34.1, POTASSIUM 5.2, BUN 44, CREATININE 1.87, GLUOCSE 132, ALBUMIN 2.7. CARDIAC ENZYMES WITHIN NORMAL LIMITS. URINALYSIS REVEALED WBC 0-2, LEUKOCYTES 1+ , BACTERIA NEGATIVE. A BRAIN CT WAS OBTAINED AND REVEALED DIFFUSE ATROPHY AND CHRONIC MICROISCHEMIC DISEASE THROUGHOUT THE DEEP WHITE MATTER WHICH IS UNCHANGED WITH NO ACUTE ABNORMALITY SEEN. EKG REVEALED SINUS RHYTHM WITH HR 68. SHE WAS GIVEN A NORMAL SALINE BOLUS X 2 LITERS AND PLACED ON A DOPAMINE DRIP. SHE WAS ADMITTED TO THE INTENSIVE CARE UNIT FOR FURTHER EVALUATION AND TREATMENT. WE PLAN TO FOLLOW UP WITH AM LABS AND CONTINUE TO MONITOR PATIENT. - Past Medical History Past Medical History: Angina, Arthritis, Coronary Artery Disease, Dyslipidemia, Hypertension, [place], Sleep Apnea - Past Surgical History Surgical History: Abdominal Surgery, Angioplasty/Stents, Appendectomy, CABG/ Valve Surgery, Cholecystectomy - Family History Family Medical History: [place], Coronary Artery Disease, Hypertension - Social History Does patient currently use any type of tobacco product: No Have you used tobacco products in the last 12 months: No Type of Tobacco Use: None Does any household member use tobacco: No Alcohol Use: None Drug Use: None - Medications Home Medications: codeine Allergy (Verified 06/26/17 18:05) Penicillins Allergy (Verified 06/26/17 18:05) promethazine Allergy (Verified 06/26/17 18:05) Sulfa (Sulfonamide Antibiotics) [SULFA] Allergy (Verified 06/26/17 18:05) CONTINUE taking the following medications alprazolam [Xanax] 0.25 mg PO BID PRN 05/11/18 [History] cetirizine 10 mg PO HS 05/11/18 [History] cyclobenzaprine 5 mg PO TID PRN 05/11/18 [History] diazepam 5 mg PO TID PRN 05/11/18 [History] furosemide [Lasix] 40 mg PO DAILY PRN 05/11/18 [History] potassium chloride 10 meq PO DAILY PRN 05/11/18 [History] - Review of Systems Constitutional: Weakness Eyes: No Symptoms Reported ENT: No Symptoms Reported Respiratory: No Symptoms Reported Cardiovascular: No Symptoms Reported Gastrointestinal: No Symptoms Reported Genitourinary: No Symptoms Reported Musculoskeletal: No Symptoms Reported Skin: No Symptoms Reported Neurological: Weakness - Physical Exam Vital Signs: Temperature 99 F Pulse Rate [Right] 73 Pulse Rate 65 Respiratory Rate 26 Blood Pressure [Left Arm] 125/56 Blood Pressure [Right Arm] 116/55 Blood Pressure 89/46 O2 Sat by Pulse Oximetry 100 Oriented: Normal Eyes: Normal Ear: Normal Nose: Normal Throat: Normal Respiratory: Diminished Throughout Cardiovascular: Normal. negative: S3, S4, Murmur : Normal Auscultation: Bowel Sounds: Normal Palpation: Normal Tenderness: Normal Skin: Normal Musculoskeletal: Normal Psychiatric: Normal Mood Description: Calm Affect: Normal Speech Pattern: Clear - Assessment/Plan (1) Dehydration Status: Acute Plan: NORMAL SALINE AT 100ML/HR, CONTINUE TO MONITOR (2) Hypotension Qualifiers: Hypotension type: unspecified hypotension type Qualified Code(s): I95.9 - Hypotension, unspecified Status: Acute Plan: DOPAMINE DRIP, NORMAL SALINE AT 100ML/HR, CONTINUE TO MONITOR (3) Generalized weakness Status: Acute - Allergies Allergies/Adverse Reactions: Allergies Allergy/AdvReac Type Severity Reaction Status Date / Time codeine Allergy Verified 06/26/17 18:05 Penicillins Allergy Verified 06/26/17 18:05 promethazine Allergy Verified 06/26/17 18:05 Sulfa (Sulfonamide Allergy Verified 06/26/17 18:05 Antibiotics) [SULFA]
[2018-05-12] MEDS: XARELTO PO SCH (20:39)
[2018-05-12] MEDS: ZyrTEC TAB 10 MG PO SCH (20:39)
[2018-05-12] MEDS: NS 1000 ML 1,000 ML IV SCH (21:31)
[2018-05-12] MEDS: METHADONE HCL PO PRN (22:16)
[2018-05-12] MEDS ORDERED: POTASSIUM CHLORIDE LIQ 20 MEQ UDC PO PRN (22:18)
[2018-05-12] MEDS ORDERED: POTASSIUM CHL 40 MEQ/NS 0.45% 500 ML IV PRN (22:18)
[2018-05-12] MEDS ORDERED: K-LYTE EFFERVESCENT PO PRN (22:18)
[2018-05-12] MEDS ORDERED: POTASSIUM CHL 60 MEQ/NS 0.45% 500 ML IV PRN (22:18)
[2018-05-12] MEDS ORDERED: K-RIDER 10 MEQ/NS 100 ML 10 MEQ/100 ML BAG IV PRN (22:18)
[2018-05-12] MEDS ORDERED: NYSTATIN POWDER ONE (22:51)
[2018-05-12] MEDS: NYSTATIN POWDER TOP SCH (23:07)
[2018-05-12] MEDS: MAGNESIUM SULFATE 1 GRAM/100 mL PREMIX 1 GM/100 ML BAG IV PRN (23:26)
[2018-05-13] MEDS: TYLENOL 325 MG TAB PO PRN ×2 (00:05→11:47)
[2018-05-13] MEDS: MAGNESIUM SULFATE 1 GRAM/100 mL PREMIX 1 GM/100 ML BAG IV PRN (00:18)
[2018-05-13 06:09] LABS: BASOPHILS # (AUTO) 0.1 X10^3/uL (0.0-0.1); BASOPHILS % (AUTO) 0.5 % (0.2-1.0); EOSINOPHILS # (AUTO) 0.3 x10^3/uL (0.0-0.2); EOSINOPHILS % (AUTO) 2.6 % (0.9-2.9); HEMATOCRIT 33.4 % (36.0-47.0); HEMOGLOBIN 11.4 g/dL (12.0-16.0); LYMPHOCYTES # (AUTO) 4.4 X10^3/uL (1.3-2.9); LYMPHOCYTES % (AUTO) 33.8 % (21.0-51.0); MEAN CORPUSCULAR HEMOGLOBIN 32.6 pg (27.0-34.0); MEAN CORPUSCULAR HGB CONC 34.1 g/dL (33.0-35.0); MEAN CORPUSCULAR VOLUME 95.6 fL (80.0-100.0); MEAN PLATELET VOLUME 8.9 fL (7.4-11.0); MONOCYTES # (AUTO) 1.8 x10^3/uL (0.3-0.8); MONOCYTES % (AUTO) 14.2 % (0.0-13.0); NEUTROPHILS # (AUTO) 6.4 x10^3/uL (2.2-4.8); NEUTROPHILS % (AUTO) 48.9 % (42.0-75.0); PLATELET COUNT 236 X10^3/uL (150.0-450.0); RED BLOOD COUNT 3.49 X10^6/uL (3.5-5.4); RED CELL DISTRIBUTION WIDTH 13.6 % (11.6-16.5)
[2018-05-13 06:16] LABS: ALANINE AMINOTRANSFERASE 17 Units/L (12-78); ALBUMIN 2.2 g/dL (3.4-5.0); ALKALINE PHOSPHATASE 58 Units/L (46-116); ASPARTATE AMINO TRANSFERASE 26 Units/L (15-37); BLOOD UREA NITROGEN 16 mg/dL (7-18); CALCIUM 8.5 mg/dL (8.5-10.1); CARBON DIOXIDE 23.6 mmol/L (21-32); CHLORIDE 105 mmol/L (98-107); COR CA(FOR HYPOALB) 9.9 mg/dL (8.5-10.1); COR NA(FOR HYPERGLY) 136 mmol/L (136-145); CREATININE 0.93 mg/dL (0.55-1.02); MAGNESIUM 2.2 mg/dL (1.7-2.9); SODIUM 136 mmol/L (136-145); eGFR NON BLACK RACES > 60 (>60)
--- NOTE | 2018-05-13 08:39 | PCM.PROG ---
Progress Note - Progress Note for Day of Date: 05/12/18 - Subjective Subjective: WAS ADMITTED FOR HYPOTENSION, DEHYDRATION, AND GENERALIZED WEAKNESS. TODAY, SHE IS ALERT AND ORIENTED, LYING IN BED ON MORNING ROUNDS. SHE CONTINUES WITH GENERALIZED WEAKNESS TODAY. SHE ALSO REPORTS LOWER BACK PAIN. ON EXAMINATION, HEART IS REGULAR IN RATE AND RHYTHM. BILATERAL LUNGS ARE CLEAR TO AUSCULTATION. ABDOMEN IS ROUND, SOFT, AND NON-TENDER. NORMAL BOWEL SOUNDS ARE NOTED IN ALL QUADRANTS. HER VITALS THIS MORNING ARE 97.9-80-21-98%-95 /56. LABS WERE OBTAINED. ABNORMAL LAB VALUES INCLUDE THE FOLLOWING: WBC 11.5, HCT 35.6, BUN 26, CREATININE 1.19, GLUCOSE 146, CALCIUM 8.4, MAGNESIUM 1.6, TOTAL PROTEIN 6.1, ALBUMIN 2.4. CREATINE KINASE IS SLIGHTLY ELEVATED T 235. EKGS NORMAL. STAFF REPORTS THAT OXYGEN DID FALL INTO THE 70S LAST NIGHT WHILE SLEEPING. PATIENT RECENTLY HAD A SLEEP STUDY. WE WILL OBTAIN THOSE REPORTS. OTHERWISE, WE WILL CONTINUE WITH IV FLUIDS AND ATTEMPT TO WEAN OFF OF THE DOPAMINE DRIP. OTHERWISE, WE WILL FOLLOW UP WITH AM LABS AND CONTINUE TO MONITOR PATIENT. - Past Medical Family Social History Past Med/Fam/Surg Hx: No changes since H&P Allergies: Allergies codeine Allergy (Verified 06/26/17 18:05) Penicillins Allergy (Verified 06/26/17 18:05) promethazine Allergy (Verified 06/26/17 18:05) Sulfa (Sulfonamide Antibiotics) [SULFA] Allergy (Verified 06/26/17 18:05) - Review of Systems ROS: No change since H&P - Vital Signs and I&O's Vital Signs: Temperature 99.4 F Pulse Rate [Right] 74 Pulse Rate 65 Respiratory Rate 23 Blood Pressure [Left Arm] 125/56 Blood Pressure [Right Arm] 116/55 Blood Pressure 89/46 O2 Sat by Pulse Oximetry 92 Intake and Output: Intake & Output 05/10/18 05/11/18 05/12/18 05/13/18 11:59 11:59 11:59 11:59 Intake Total 1493 / 1493 3393 / 3393 Output Total 1400 / 1400 2049 / 2049 Balance 93 / 93 1343 / 1343 - Physical Exam Oriented: Normal Eyes: Normal Ear: Normal Nose: Normal Throat: Normal Respiratory: Generalized, Diminished Cardiovascular: Normal. negative: S3, S4, Murmur : Normal Auscultation: Bowel Sounds: Normal Palpation: Normal Tenderness: Normal Skin: Normal Musculoskeletal: Back:Lumbar, Tender Psychiatric: Normal Mood Description: Calm Affect: Normal Speech Pattern: Clear - Laboratory and Diagnostics Result Diagrams: 05/13/18 05:43 05/13/18 05:43 Labs: Laboratory WBC 13.0 X10^3/uL (3.6-10.0) H 05/13/18 05:43 RBC 3.49 X10^6/uL (3.5-5.4) L 05/13/18 05:43 Hgb 11.4 g/dL (12.0-16.0) L 05/13/18 05:43 Hct 33.4 % (36.0-47.0) L 05/13/18 05:43 MCV 95.6 fL (80.0-100.0) 05/13/18 05:43 MCH 32.6 pg (27.0-34.0) 05/13/18 05:43 MCHC 34.1 g/dL (33.0-35.0) 05/13/18 05:43 RDW 13.6 % (11.6-16.5) 05/13/18 05:43 Plt Count 236 X10^3/uL (150.0-450.0) 05/13/18 05:43 MPV 8.9 fL (7.4-11.0) 05/13/18 05:43 Neut % (Auto) 48.9 % (42.0-75.0) 05/13/18 05:43 Lymph % (Auto) 33.8 % (21.0-51.0) 05/13/18 05:43 [place] % (Auto) 14.2 % (0.0-13.0) H 05/13/18 05:43 Eos % (Auto) 2.6 % (0.9-2.9) 05/13/18 05:43 Baso % (Auto) 0.5 % (0.2-1.0) 05/13/18 05:43 Neut # (Auto) 6.4 x10^3/uL (2.2-4.8) H 05/13/18 05:43 Lymph # (Auto) 4.4 X10^3/uL (1.3-2.9) H 05/13/18 05:43 [place] # (Auto) 1.8 x10^3/uL (0.3-0.8) H 05/13/18 05:43 Eos # (Auto) 0.3 x10^3/uL (0.0-0.2) H 05/13/18 05:43 Baso # (Auto) 0.1 X10^3/uL (0.0-0.1) 05/13/18 05:43 Absolute Nucleated RBC 0.1 /100WBC 05/13/18 05:43 INR Target Range - 05/13/18 05:43 INR 1.53 (0.8-1.3) H 05/13/18 05:43 APTT 33.8 SECONDS (22.9-36.5) 05/11/18 19:28 PTT Comment - 05/11/18 19:28 Sodium 136 mmol/L (136-145) 05/13/18 05:43 Corrected Sodium 136 mmol/L (136-145) 05/13/18 05:43 Potassium 4.5 mmol/L (3.5-5.1) 05/13/18 05:43 Chloride 105 mmol/L (98-107) 05/13/18 05:43 Carbon Dioxide 23.6 mmol/L (21-32) 05/13/18 05:43 BUN 16 mg/dL (7-18) 05/13/18 05:43 Creatinine 0.93 mg/dL (0.55-1.02) 05/13/18 05:43 Est GFR (MDRD) Af Amer > 60 (>60) 05/13/18 05:43 Est GFR (MDRD) Non-Af > 60 (>60) 05/13/18 05:43 Glucose 115 mg/dL (65-99) H 05/13/18 05:43 Calcium 8.5 mg/dL (8.5-10.1) 05/13/18 05:43 Corrected Calcium 9.9 mg/dL (8.5-10.1) 05/13/18 05:43 Magnesium 2.2 mg/dL (1.7-2.9) 05/13/18 05:43 Total Bilirubin 0.50 mg/dL (0.2-1.0) 05/13/18 05:43 AST 26 Units/L (15-37) 05/13/18 05:43 ALT 17 Units/L (12-78) 05/13/18 05:43 Alkaline Phosphatase 58 Units/L (46-116) 05/13/18 05:43 Creatine Kinase 235 Units/L (26-192) H 05/12/18 06:05 CK-MB (CK-2) 2.2 ng/mL (0-4.0) 05/12/18 06:05 CK/CKMB % Calc 0.9 % (<4) 05/12/18 06:05 Troponin I < 0.02 ng/mL (0-1.5) 05/12/18 06:05 Total Protein 6.0 g/dL (6.4-8.2) L 05/13/18 05:43 Albumin 2.2 g/dL (3.4-5.0) L 05/13/18 05:43 Globulin 3.8 g/dL (2.5-4.5) 05/13/18 05:43 Albumin/Globulin Ratio 0.6 Ratio (1.1-2.1) L 05/13/18 05:43 Specimen Type Catherized urine 05/11/18 23:27 Urine Color Erika (YELLOW) 05/11/18 23: Urine Appearance Clear (CLEAR) 05/11/18 23:27 Urine pH 5.0 (5.0 - 8.0) 05/11/18 23:27 Ur Specific [place] 1.015 (1.000-1.030) 05/11/18 23: Urine Protein Negative (NEGATIVE) 05/11/18 23: Urine Glucose (UA) Negative (NEGATIVE) 05/11/18 23: Urine Ketones Negative (NEGATIVE) 05/11/18 23: Urine Occult Blood 1+ (NEGATIVE) 05/11/18 23: Urine Nitrite Positive (NEGATIVE) 05/11/18 23: Urine Bilirubin 1+ (NEGATIVE) 05/11/18 23: Urine Urobilinogen 1+ (NORMAL) 05/11/18 23: Ur Leukocyte Esterase 1+ (NEGATIVE) 05/11/18 23: Urine RBC None seen /HPF (NONE SEEN) 05/11/18 23: Urine WBC 0-2 /HPF (NONE SEEN) 05/11/18 23:27 Ur Squamous Epith Cells Rare /HPF (NEGATIVE) 05/11/18 23:27 Amorphous Sediment 2+ /HPF (NEGATIVE) 05/11/18 23:27 Urine Bacteria Negative /HPF (NEGATIVE) 05/11/18 23:27 Ur Culture Indicated? No/not indicated 05/11/18 23:27 - Plan (1) Dehydration Status: Acute Plan: NORMAL SALINE AT 100ML/HR, CONTINUE TO MONITOR (2) Hypotension Status: Acute Qualifiers: Hypotension type: unspecified hypotension type Qualified Code(s): I95.9 - Hypotension, unspecified Plan: DOPAMINE DRIP, NORMAL SALINE AT 100ML/HR, CONTINUE TO MONITOR (3) Generalized weakness Status: Acute
[2018-05-13] MEDS: NYSTATIN POWDER TOP SCH ×2 (08:57→20:35)
[2018-05-13] MEDS: ELAVIL PO SCH ×2 (08:57→20:31)
[2018-05-13] MEDS: METHADONE HCL PO PRN ×2 (09:06→20:32)
[2018-05-13] MEDS: DOPAMINE IV PREMIX 400 MG/250 ML 400 MG/250 ML BAG IV PRN (12:03)
--- NOTE | 2018-05-13 13:32 | RAD ---
HISTORY: Fever, previous CHF Study: Single-view of the chest Comparison: January 29, 2014 Findings: The trachea is midline. The cardiac silhouette is enlarged with pulmonary vascular congestion. Infil trate and/or edema are noted within the right lower lobe. A small left-sided pleural effusion cannot entirely be excluded. Postoperative changes of midline sternotomy are noted. . IMPRESSION: Cardiomegaly with pulmonary vascular congestion. Right basilar edema and/or infiltrate. Correlate clinically. Reported By:
[2018-05-13] MEDS: ZyrTEC TAB 10 MG PO SCH (20:32)
[2018-05-13] MEDS: XARELTO PO SCH (20:32)
[2018-05-13] MEDS ORDERED: LEVAQUIN PREMIX IV 500 MG 500 MG/100 ML BAG IV SCH (22:00)
[2018-05-13] MEDS: NS 1000 ML 1,000 ML IV SCH (23:31)
[2018-05-14 06:10] LABS: BASOPHILS # (AUTO) 0.1 X10^3/uL (0.0-0.1); BASOPHILS % (AUTO) 0.6 % (0.2-1.0); EOSINOPHILS # (AUTO) 0.3 x10^3/uL (0.0-0.2); EOSINOPHILS % (AUTO) 2.4 % (0.9-2.9); HEMATOCRIT 30.6 % (36.0-47.0); HEMOGLOBIN 10.6 g/dL (12.0-16.0); LYMPHOCYTES # (AUTO) 4.1 X10^3/uL (1.3-2.9); LYMPHOCYTES % (AUTO) 31.4 % (21.0-51.0); MEAN CORPUSCULAR HEMOGLOBIN 32.8 pg (27.0-34.0); MEAN CORPUSCULAR HGB CONC 34.7 g/dL (33.0-35.0); MEAN CORPUSCULAR VOLUME 94.4 fL (80.0-100.0); MEAN PLATELET VOLUME 8.9 fL (7.4-11.0); MONOCYTES # (AUTO) 1.5 x10^3/uL (0.3-0.8); MONOCYTES % (AUTO) 11.5 % (0.0-13.0); NEUTROPHILS % (AUTO) 54.1 % (42.0-75.0); PLATELET COUNT 227 X10^3/uL (150.0-450.0); RED BLOOD COUNT 3.24 X10^6/uL (3.5-5.4); RED CELL DISTRIBUTION WIDTH 13.5 % (11.6-16.5); WHITE BLOOD COUNT 12.9 X10^3/uL (3.6-10.0)
[2018-05-14 06:15] LABS: ALANINE AMINOTRANSFERASE 24 Units/L (12-78); ALBUMIN 1.9 g/dL (3.4-5.0); ALKALINE PHOSPHATASE 66 Units/L (46-116); ASPARTATE AMINO TRANSFERASE 20 Units/L (15-37); BLOOD UREA NITROGEN 13 mg/dL (7-18); CALCIUM 8.4 mg/dL (8.5-10.1); CARBON DIOXIDE 24.8 mmol/L (21-32); CHLORIDE 104 mmol/L (98-107); COR CA(FOR HYPOALB) 10.1 mg/dL (8.5-10.1); CREATININE 0.94 mg/dL (0.55-1.02); SODIUM 136 mmol/L (136-145); TOTAL PROTEIN 5.7 g/dL (6.4-8.2); eGFR NON BLACK RACES > 60 (>60)
--- NOTE | 2018-05-14 07:00 | RAD ---
History: Shortness of breath Study: Portable AP chest Comparison: May 13 Findings: The heart size is prominent at the left hemidiaphragm is obscured with increasing density a t the left lung base and behind the left heart. There is minimal increased density at the right lung base. There are increased diffuse interstitial lung markings. Impression: 1. Increasing density at the left lung base consistent with pleural fluid and probable left basilar a telectasis or consolidation 2. Subsegmental atelectasis or consolidation at the right lung base Reported By:
[2018-05-14] MEDS: NYSTATIN POWDER TOP SCH ×2 (08:23→21:10)
[2018-05-14] MEDS: ELAVIL PO SCH ×2 (08:23→21:09)
--- NOTE | 2018-05-14 08:32 | PCM.PROG ---
Progress Note - Progress Note for Day of Date: 05/13/18 - Subjective Subjective: WAS ADMITTED FOR HYPOTENSION, DEHYDRATION, AND GENERALIZED WEAKNESS. TODAY, SHE IS ALERT AND ORIENTED, LYING IN BED ON MORNING ROUNDS. SHE CONTINUES WITH GENERALIZED WEAKNESS TODAY WELL LOWER BACK PAIN. ON EXAMINATION, HEART IS REGULAR IN RATE AND RHYTHM. BILATERAL LUNGS ARE NOTED WITH DIMINISHED LUNG SOUNDS THROUGHOUT. ABDOMEN IS ROUND, SOFT, AND NON- TENDER. NORMAL BOWEL SOUNDS ARE NOTED IN ALL QUADRANTS. HER VITALS THIS MORNING ARE 99.4-74-23-92%-125/56. LABS WERE OBTAINED. ABNORMAL LAB VALUES INCLUDE THE FOLLOWING: WBC 13.0, RBC 3.49, HGB 11.4, HCT 33.4, GLUCOSE 115, TOTAL PROTEIN 6.0, ALBUMIN 2.2. WE ATTEMPTED TO WEAN OFF OF THE DOPAMINE THROUGHOUT THE NIGHT , HOWEVER, WE WERE UNSUCCESSFUL. SHE REMAINS ON THE DRIP THIS MORNING. WE OBTAINED A CHEST XRAY TODAY. IT REVEALED CARDIOMEGALY WITH PULMONARY VASCULAR CONGESTION. RIGHT BASILAR EDEMA AND/OR INFILTRATE. WE STARTED HER ON LEVAQUIN 250ML IV HS. WE WILL CONTINUE WITH CURRENT PLAN OF CARE AND ATTEMPT TO WEAN PATIENT OFF OF DOPAMINE TODAY. OTHERWISE, WE WILL FOLLOW UP WITH AM LABS AND CONTINUE TO MONITOR PATIENT. - Past Medical Family Social History Past Med/Fam/Surg Hx: No changes since H&P Allergies: Allergies codeine Allergy (Verified 06/26/17 18:05) Penicillins Allergy (Verified 06/26/17 18:05) promethazine Allergy (Verified 06/26/17 18:05) Sulfa (Sulfonamide Antibiotics) [SULFA] Allergy (Verified 06/26/17 18:05) - Review of Systems ROS: No change since H&P - Vital Signs and I&O's Vital Signs: Temperature 98.8 F Pulse Rate [Right] 82 Pulse Rate 65 Respiratory Rate 24 Blood Pressure [Left Arm] 127/59 Blood Pressure [Right Arm] 116/55 Blood Pressure 89/46 O2 Sat by Pulse Oximetry 97 Intake and Output: Intake & Output 05/11/18 05/12/18 05/13/18 05/14/18 11:59 11:59 11:59 11:59 Intake Total 1493 / 1493 3450 / 3450 1580 / 1580 Output Total 1400 / 1400 2049 / 2049 1800 / 1800 Balance 93 / 93 1400 / 1400 -220 / -220 - Physical Exam Oriented: Normal Eyes: Normal Ear: Normal Nose: Normal Throat: Normal Respiratory: Generalized, Diminished Cardiovascular: Normal. negative: S3, S4, Murmur : Normal Auscultation: Bowel Sounds: Normal Palpation: Normal Tenderness: Normal Skin: Normal Musculoskeletal: Back:Lumbar, Tender Psychiatric: Normal Mood Description: Calm Affect: Normal Speech Pattern: Clear, Appropriate - Laboratory and Diagnostics Result Diagrams: 05/14/18 05:38 05/14/18 05:38 Labs: Laboratory WBC 12.9 X10^3/uL (3.6-10.0) H 05/14/18 05:38 RBC 3.24 X10^6/uL (3.5-5.4) L 05/14/18 05:38 Hgb 10.6 g/dL (12.0-16.0) L 05/14/18 05:38 Hct 30.6 % (36.0-47.0) L 05/14/18 05:38 MCV 94.4 fL (80.0-100.0) 05/14/18 05:38 MCH 32.8 pg (27.0-34.0) 05/14/18 05:38 MCHC 34.7 g/dL (33.0-35.0) 05/14/18 05:38 RDW 13.5 % (11.6-16.5) 05/14/18 05:38 Plt Count 227 X10^3/uL (150.0-450.0) 05/14/18 05:38 MPV 8.9 fL (7.4-11.0) 05/14/18 05:38 Neut % (Auto) 54.1 % (42.0-75.0) 05/14/18 05:38 Lymph % (Auto) 31.4 % (21.0-51.0) 05/14/18 05:38 [place] % (Auto) 11.5 % (0.0-13.0) 05/14/18 05:38 Eos % (Auto) 2.4 % (0.9-2.9) 05/14/18 05:38 Baso % (Auto) 0.6 % (0.2-1.0) 05/14/18 05:38 Neut # (Auto) 7.0 x10^3/uL (2.2-4.8) H 05/14/18 05:38 Lymph # (Auto) 4.1 X10^3/uL (1.3-2.9) H 05/14/18 05:38 [place] # (Auto) 1.5 x10^3/uL (0.3-0.8) H 05/14/18 05:38 Eos # (Auto) 0.3 x10^3/uL (0.0-0.2) H 05/14/18 05:38 Baso # (Auto) 0.1 X10^3/uL (0.0-0.1) 05/14/18 05:38 Absolute Nucleated RBC 0.0 /100WBC 05/14/18 05:38 INR Target Range - 05/13/18 05:43 INR 1.53 (0.8-1.3) H 05/13/18 05:43 APTT 33.8 SECONDS (22.9-36.5) 05/11/18 19:28 PTT Comment - 05/11/18 19:28 Sodium 136 mmol/L (136-145) 05/14/18 05:38 Corrected Sodium TNP 05/14/18 05:38 Potassium 4.3 mmol/L (3.5-5.1) 05/14/18 05:38 Chloride 104 mmol/L (98-107) 05/14/18 05:38 Carbon Dioxide 24.8 mmol/L (21-32) 05/14/18 05:38 BUN 13 mg/dL (7-18) 05/14/18 05:38 Creatinine 0.94 mg/dL (0.55-1.02) 05/14/18 05:38 Est GFR (MDRD) Af Amer > 60 (>60) 05/14/18 05:38 Est GFR (MDRD) Non-Af > 60 (>60) 05/14/18 05:38 Glucose 81 mg/dL (65-99) 05/14/18 05:38 Calcium 8.4 mg/dL (8.5-10.1) L 05/14/18 05:38 Corrected Calcium 10.1 mg/dL (8.5-10.1) 05/14/18 05:38 Magnesium 2.2 mg/dL (1.7-2.9) 05/13/18 05:43 Total Bilirubin 0.60 mg/dL (0.2-1.0) 05/14/18 05:38 AST 20 Units/L (15-37) 05/14/18 05:38 ALT 24 Units/L (12-78) 05/14/18 05:38 Alkaline Phosphatase 66 Units/L (46-116) 05/14/18 05:38 Creatine Kinase 235 Units/L (26-192) H 05/12/18 06:05 CK-MB (CK-2) 2.2 ng/mL (0-4.0) 05/12/18 06:05 CK/CKMB % Calc 0.9 % (<4) 05/12/18 06:05 Troponin I < 0.02 ng/mL (0-1.5) 05/12/18 06:05 Total Protein 5.7 g/dL (6.4-8.2) L 05/14/18 05:38 Albumin 1.9 g/dL (3.4-5.0) L 05/14/18 05:38 Globulin 3.8 g/dL (2.5-4.5) 05/14/18 05:38 Albumin/Globulin Ratio 0.5 Ratio (1.1-2.1) L 05/14/18 05:38 Specimen Type Catherized urine 05/11/18 23:27 Urine Color Erika (YELLOW) 05/11/18 23:27 Urine Appearance Clear (CLEAR) 05/11/18 23:27 Urine pH 5.0 (5.0 - 8.0) 05/11/18 23:27 Ur Specific [place] 1.015 (1.000-1.030) 05/11/18 23: Urine Protein Negative (NEGATIVE) 05/11/18 23: Urine Glucose (UA) Negative (NEGATIVE) 05/11/18 23: Urine Ketones Negative (NEGATIVE) 05/11/18 23: Urine Occult Blood 1+ (NEGATIVE) 05/11/18 23: Urine Nitrite Positive (NEGATIVE) 05/11/18 23: Urine Bilirubin 1+ (NEGATIVE) 05/11/18 23: Urine Urobilinogen 1+ (NORMAL) 05/11/18 23: Ur Leukocyte Esterase 1+ (NEGATIVE) 05/11/18 23:27 Urine RBC None seen /HPF (NONE SEEN) 05/11/18 23:27 Urine WBC 0-2 /HPF (NONE SEEN) 05/11/18 23:27 Ur Squamous Epith Cells Rare /HPF (NEGATIVE) 05/11/18 23:27 Amorphous Sediment 2+ /HPF (NEGATIVE) 05/11/18 23:27 Urine Bacteria Negative /HPF (NEGATIVE) 05/11/18 23:27 Ur Culture Indicated? No/not indicated 05/11/18 23:27 - Plan (1) Dehydration Status: Acute Plan: NORMAL SALINE AT 100ML/HR, CONTINUE TO MONITOR (2) Hypotension Status: Acute Qualifiers: Hypotension type: unspecified hypotension type Qualified Code(s): I95.9 - Hypotension, unspecified Plan: DOPAMINE DRIP, NORMAL SALINE AT 100ML/HR, CONTINUE TO MONITOR (3) Generalized weakness Status: Acute
[2018-05-14] MEDS: DUONEB 0.5 MG/3 MG NEB SCH ×4 (09:00→20:23)
--- NOTE | 2018-05-14 12:04 | CT ---
Examination: CT of the head. Clinical history: Severe leg weakness. Technique: Multiple axial images were obtained from the skull base to the vertex. Dose reduction tech niques including automated exposure control (AEC) and adjustment of mA and kV were utilized. Comparison: 05/11/2018. Findings: Nonspecific periventricular white matter changes are noted, likely due to small vessel ischemic disea se. A stable old lacunar infarct is noted in the left basal ganglia region. There is a stable area of encephalomalacia seen in the left occipital region. There is no intra-, or extra-axial hemorrhage, acute infarct or mass lesion noted. There is prominence of the CSF spaces consistent with age related cerebral atrophy. The ventricles ar e symmetric about the midline, with no midline shift or mass effect noted. The posterior fossa, brain stem and orbital regions are within normal limits. Atherosclerotic calcifi cations are seen associated with the internal carotid arteries bilaterally and the vertebral arteries bilaterally. No bony or soft tissue abnormality is noted. Impression: 1. No acute infarct or hemorrhage. 2. Age-related cerebral atrophy. 3. Nonspecific periventricular white matter changes are noted, likely due to small vessel ischemic di sease. 4. Stable old lacunar infarct in the left basal ganglia region. 5. Stable area of encephalomalacia in the left occipital region. Reported By:
[2018-05-14] MEDS: TYLENOL 325 MG TAB PO PRN (16:10)
[2018-05-14] MEDS ORDERED: COLACE CAP 100 MG PO SCH (21:00)
[2018-05-14] MEDS: METHADONE HCL PO PRN (21:09)
[2018-05-14] MEDS: ZyrTEC TAB 10 MG PO SCH (21:09)
[2018-05-14] MEDS: COLACE CAP 100 MG PO SCH (21:09)
[2018-05-14] MEDS: LEVAQUIN PREMIX IV 250 MG 250 MG/50 ML BAG IV SCH (21:10)
[2018-05-14] MEDS: XARELTO PO SCH (21:10)
[2018-05-14] MEDS: MILK OF MAGNESIA PO SCH (21:10)
[2018-05-15 05:42] LABS: BASOPHILS % (AUTO) 0.4 % (0.2-1.0); EOSINOPHILS # (AUTO) 0.4 x10^3/uL (0.0-0.2); HEMATOCRIT 31.1 % (36.0-47.0); HEMOGLOBIN 10.9 g/dL (12.0-16.0); LYMPHOCYTES # (AUTO) 3.6 X10^3/uL (1.3-2.9); LYMPHOCYTES % (AUTO) 32.9 % (21.0-51.0); MEAN CORPUSCULAR HEMOGLOBIN 32.6 pg (27.0-34.0); MEAN CORPUSCULAR HGB CONC 34.9 g/dL (33.0-35.0); MEAN CORPUSCULAR VOLUME 93.6 fL (80.0-100.0); MEAN PLATELET VOLUME 8.6 fL (7.4-11.0); MONOCYTES # (AUTO) 1.1 x10^3/uL (0.3-0.8); MONOCYTES % (AUTO) 10.4 % (0.0-13.0); NEUTROPHILS # (AUTO) 5.8 x10^3/uL (2.2-4.8); NEUTROPHILS % (AUTO) 52.3 % (42.0-75.0); PLATELET COUNT 253 X10^3/uL (150.0-450.0); RED BLOOD COUNT 3.33 X10^6/uL (3.5-5.4); RED CELL DISTRIBUTION WIDTH 13.7 % (11.6-16.5)
[2018-05-15 06:08] LABS: ALANINE AMINOTRANSFERASE 22 Units/L (12-78); ALBUMIN 1.9 g/dL (3.4-5.0); ALKALINE PHOSPHATASE 84 Units/L (46-116); ASPARTATE AMINO TRANSFERASE 21 Units/L (15-37); BLOOD UREA NITROGEN 13 mg/dL (7-18); CALCIUM 8.5 mg/dL (8.5-10.1); CARBON DIOXIDE 26.6 mmol/L (21-32); CHLORIDE 103 mmol/L (98-107); COR CA(FOR HYPOALB) 10.2 mg/dL (8.5-10.1); CREATININE 0.92 mg/dL (0.55-1.02); SODIUM 136 mmol/L (136-145); eGFR NON BLACK RACES > 60 (>60)
--- NOTE | 2018-05-15 07:22 | RAD ---
HISTORY: Shortness of breath Study: Portable AP chest Comparison: Yesterday Findings: The trachea is midline. The cardiac silhouette is normal status post old coronary artery bypass angeles ting surgery. The left hemidiaphragm remains obscured with left retrocardiac density. The left costo phrenic angle is indistinct. The right lung base appears improved. The bony thorax is unremarkable. IMPRESSION: 1. Persistent left lower lobe atelectasis and/or pneumonia with a probable small pleural effusion 2. Near resolution of subsegmental atelectasis or consolidation at the right lung base Reported By:
[2018-05-15] MEDS: DUONEB 0.5 MG/3 MG NEB SCH ×4 (09:01→20:14)
[2018-05-15] MEDS: NYSTATIN POWDER TOP SCH ×2 (09:02→20:48)
[2018-05-15] MEDS: ELAVIL PO SCH ×2 (09:02→20:57)
--- NOTE | 2018-05-15 10:09 | RAD ---
Examination: Right foot, three views History: Heel pain Findings: There is no evidence for fracture, dislocation, osteolytic disease or significant arthritis . The calcaneus appears normal. Impression: No abnormality demonstrated. Reported By:
--- NOTE | 2018-05-15 12:05 | PCM.PROG ---
Progress Note - Progress Note for Day of Date: 05/14/18 - Subjective Subjective: WAS ADMITTED FOR HYPOTENSION, DEHYDRATION, AND GENERALIZED WEAKNESS. TODAY, SHE IS ALERT AND ORIENTED, LYING IN BED ON MORNING ROUNDS. SHE CONTINUES WITH GENERALIZED WEAKNESS AND ACHING TODAY. SHE ALSO REPORTS COMPLAINTS OF SHORTNESS OF BREATH AND SEVERE LEG PAIN AND WEAKNESS. ON EXAMINATION, HEART IS REGULAR IN RATE AND RHYTHM. BILATERAL LUNGS ARE NOTED WITH DIMINISHED LUNG SOUNDS THROUGHOUT. ABDOMEN IS ROUND, SOFT, AND NON-TENDER. NORMAL BOWEL SOUNDS ARE NOTED IN ALL QUADRANTS. WEAKNESS NOTED TO BILATERAL LOWER EXTREMITIES. HER VITALS THIS MORNING ARE 99.8-80-25-98%-120/57. LABS WERE OBTAINED. ABNORMAL LAB VALUES INCLUDE THE FOLLOWING: WBC 12.9, RBC 3.24, HGB 10.6, HCT 30.6, CALCIUM 8.4, TOTAL PROTEIN 5.7, ALBUMIN 1.9. WE WERE ABLE TO SUCCESSFULLY WEAN PATIENT OFF OF THE DOPAMINE DRIP LAST NIGHT. WE OBTAINED A CHEST XRAY TODAY. IT REVEALED INCREASING DENSITY AT THE LEFT LUNG BASE CONSISTENT WITH PLEURAL FLUID AND PROBABLE LEFT BASILAR ATELECTASIS OR CONSOLIDATION. SUBSEGMENTAL ATELECTASIS OR CONSOLIDATION AT THE RIGHT LUNG BASE. SHE IS CURRENTLY RECEIVING IV FLUIDS AND LEVAQUIN IV DAILY. TODAY, WE WILL START RESPIRATORY TREATMENTS AND INCENTIVE SPIROMETER Q1H WHILE AWAKE. WE WILL OBTAIN A REPEAT BRAIN CT. OTHERWISE, WE WILL CONTINUE WITH CURRENT PLAN OF CARE. WE WILL FOLLOW UP WITH AM LABS AND CONTINUE TO MONITOR PATIENT. - Past Medical Family Social History Past Med/Fam/Surg Hx: No changes since H&P Allergies: Allergies codeine Allergy (Verified 06/26/17 18:05) Penicillins Allergy (Verified 06/26/17 18:05) promethazine Allergy (Verified 06/26/17 18:05) Sulfa (Sulfonamide Antibiotics) [SULFA] Allergy (Verified 06/26/17 18:05) - Review of Systems ROS: No change since H&P - Vital Signs and I&O's Vital Signs: Temperature 97.4 F Pulse Rate [Right] 79 Pulse Rate 84 Respiratory Rate 21 Blood Pressure [Left Arm] 131/60 Blood Pressure [Right Arm] 156/66 Blood Pressure 89/46 O2 Sat by Pulse Oximetry 95 Intake and Output: Intake & Output 05/13/18 05/14/18 05/15/18 05/16/18 11:59 11:59 11:59 11:59 Intake Total 3450 / 3450 1580 / 1580 1420 / 1420 Output Total 2049 / 2049 1800 / 1800 1550 / 1550 Balance 1400 / 1400 -220 / -220 -130 / -130 - Physical Exam Oriented: Normal Eyes: Normal Ear: Normal Nose: Normal Throat: Normal Respiratory: Generalized, Diminished Cardiovascular: Normal. negative: S3, S4, Murmur : Normal Auscultation: Bowel Sounds: Normal Palpation: Normal Tenderness: Normal Skin: Normal Musculoskeletal: Back:Lumbar, Tender Psychiatric: Normal Mood Description: Calm Affect: Normal Speech Pattern: Clear, Appropriate - Laboratory and Diagnostics Result Diagrams: 05/15/18 05:26 05/15/18 05:26 Labs: 05/13/18 00:50 Blood Blood Culture - Preliminary 05/13/18 00:00 Blood Blood Culture - Preliminary Laboratory WBC 11.0 X10^3/uL (3.6-10.0) H 05/15/18 05:26 RBC 3.33 X10^6/uL (3.5-5.4) L 05/15/18 05:26 Hgb 10.9 g/dL (12.0-16.0) L 05/15/18 05:26 Hct 31.1 % (36.0-47.0) L 05/15/18 05:26 MCV 93.6 fL (80.0-100.0) 05/15/18 05:26 MCH 32.6 pg (27.0-34.0) 05/15/18 05:26 MCHC 34.9 g/dL (33.0-35.0) 05/15/18 05:26 RDW 13.7 % (11.6-16.5) 05/15/18 05:26 Plt Count 253 X10^3/uL (150.0-450.0) 05/15/18 05:26 MPV 8.6 fL (7.4-11.0) 05/15/18 05:26 Neut % (Auto) 52.3 % (42.0-75.0) 05/15/18 05:26 Lymph % (Auto) 32.9 % (21.0-51.0) 05/15/18 05:26 [place] % (Auto) 10.4 % (0.0-13.0) 05/15/18 05:26 Eos % (Auto) 4.0 % (0.9-2.9) H 05/15/18 05:26 Baso % (Auto) 0.4 % (0.2-1.0) 05/15/18 05:26 Neut # (Auto) 5.8 x10^3/uL (2.2-4.8) H 05/15/18 05:26 Lymph # (Auto) 3.6 X10^3/uL (1.3-2.9) H 05/15/18 05:26 [place] # (Auto) 1.1 x10^3/uL (0.3-0.8) H 05/15/18 05:26 Eos # (Auto) 0.4 x10^3/uL (0.0-0.2) H 05/15/18 05:26 Baso # (Auto) 0.0 X10^3/uL (0.0-0.1) 05/15/18 05:26 Absolute Nucleated RBC 0.1 /100WBC 05/15/18 05:26 INR Target Range - 05/13/18 05:43 INR 1.53 (0.8-1.3) H 05/13/18 05:43 APTT 33.8 SECONDS (22.9-36.5) 05/11/18 19:28 PTT Comment - 05/11/18 19:28 Sodium 136 mmol/L (136-145) 05/15/18 05:26 Corrected Sodium TNP 05/15/18 05:26 Potassium 3.9 mmol/L (3.5-5.1) 05/15/18 05:26 Chloride 103 mmol/L (98-107) 05/15/18 05:26 Carbon Dioxide 26.6 mmol/L (21-32) 05/15/18 05:26 BUN 13 mg/dL (7-18) 05/15/18 05:26 Creatinine 0.92 mg/dL (0.55-1.02) 05/15/18 05:26 Est GFR (MDRD) Af Amer > 60 (>60) 05/15/18 05:26 Est GFR (MDRD) Non-Af > 60 (>60) 05/15/18 05:26 Glucose 83 mg/dL (65-99) 05/15/18 05:26 Calcium 8.5 mg/dL (8.5-10.1) 05/15/18 05:26 Corrected Calcium 10.2 mg/dL (8.5-10.1) H 05/15/18 05:26 Magnesium 2.2 mg/dL (1.7-2.9) 05/13/18 05:43 Total Bilirubin 0.50 mg/dL (0.2-1.0) 05/15/18 05:26 AST 21 Units/L (15-37) 05/15/18 05:26 ALT 22 Units/L (12-78) 05/15/18 05:26 Alkaline Phosphatase 84 Units/L (46-116) 05/15/18 05:26 Creatine Kinase 235 Units/L (26-192) H 05/12/18 06:05 CK-MB (CK-2) 2.2 ng/mL (0-4.0) 05/12/18 06:05 CK/CKMB % Calc 0.9 % (<4) 05/12/18 06:05 Troponin I < 0.02 ng/mL (0-1.5) 05/12/18 06:05 Total Protein 6.0 g/dL (6.4-8.2) L 05/15/18 05:26 Albumin 1.9 g/dL (3.4-5.0) L 05/15/18 05:26 Globulin 4.1 g/dL (2.5-4.5) 05/15/18 05:26 Albumin/Globulin Ratio 0.5 Ratio (1.1-2.1) L 05/15/18 05:26 Specimen Type Catherized urine 05/11/18 23: Urine Color Erika (YELLOW) 05/11/18 23: Urine Appearance Clear (CLEAR) 05/11/18 23: Urine pH 5.0 (5.0 - 8.0) 05/11/18: Ur Specific [place] 1.015 (1.000-1.030) 05/11/18 23: Urine Protein Negative (NEGATIVE) 05/11/18: Urine Glucose (UA) Negative (NEGATIVE) 05/11/18: Urine Ketones Negative (NEGATIVE) 05/11/18 23: Urine Occult Blood 1+ (NEGATIVE) 05/11/18 23:27 Urine Nitrite Positive (NEGATIVE) 05/11/18 23: Urine Bilirubin 1+ (NEGATIVE) 05/11/18 23: Urine Urobilinogen 1+ (NORMAL) 05/11/18 23:27 Ur Leukocyte Esterase 1+ (NEGATIVE) 05/11/18 23:27 Urine RBC None seen /HPF (NONE SEEN) 05/11/18 23: Urine WBC 0-2 /HPF (NONE SEEN) 05/11/18 23: Ur Squamous Epith Cells Rare /HPF (NEGATIVE) 05/11/18 23: Amorphous Sediment 2+ /HPF (NEGATIVE) 05/11/18 23:27 Urine Bacteria Negative /HPF (NEGATIVE) 05/11/18 23:27 Ur Culture Indicated? No/not indicated 05/11/18 23:27 - Plan (1) Dehydration Status: Acute Plan: NORMAL SALINE AT 100ML/HR, CONTINUE TO MONITOR (2) Hypotension Status: Resolved Qualifiers: Hypotension type: unspecified hypotension type Qualified Code(s): I95.9 - Hypotension, unspecified Plan: NORMAL SALINE AT 100ML/HR, CONTINUE TO MONITOR (3) Generalized weakness Status: Acute Plan: OBTAIN BRAIN CT (4) Bronchopneumonia Status: Acute Plan: LEVAQUIN IV DAILY, RESPIRATORY TREATMENTS, SUPPLEMENTAL OXYGEN, CONTINUE TO MONITOR
[2018-05-15] MEDS: NS 1000 ML 1,000 ML IV SCH (18:34)
--- NOTE | 2018-05-15 19:52 | PCM.PROG ---
Progress Note - Progress Note for Day of Date: 05/15/18 - Subjective Subjective: WAS ADMITTED FOR HYPOTENSION, DEHYDRATION, AND GENERALIZED WEAKNESS. TODAY, SHE IS ALERT AND ORIENTED, LYING IN BED ON MORNING ROUNDS. SHE CONTINUES WITH GENERALIZED WEAKNESS, SHORTNESS OF BREATH, AND LEFT LEG PAIN TODAY. ON EXAMINATION, HEART IS REGULAR IN RATE AND RHYTHM. BILATERAL LUNGS ARE NOTED WITH DIMINISHED LUNG SOUNDS THROUGHOUT. ABDOMEN IS ROUND, SOFT, AND NON-TENDER. NORMAL BOWEL SOUNDS ARE NOTED IN ALL QUADRANTS. WEAKNESS CONTINUES TO BILATERAL LOWER EXTREMITIES. THERE IS MODERATE TENDERNESS NOTED TO THE RIGHT FOOT. HER VITALS THIS MORNING ARE 100.3-77-22-94%-157/66. LABS WERE OBTAINED. ABNORMAL LAB VALUES INCLUDE THE FOLLOWING: WBC 11.0, RBC 3.33, HGB 10.9, HCT 31.1, TOTAL PROTEIN 6.0, ALBUMIN 1.9. WE OBTAINED A CHEST XRAY TODAY. IT REVEALED PERSISTENT LEFT LOWER LOBE ATELECTASIS AND/OR PNEUMONIA WITH A PROBABLE SMALL PLEURAL EFFUSION. NEAR RESOLUTION OF SUBSEGMENTAL ATELECTASIS OR CONSOLIDATION AT THE RIGHT LUNG BASE. SHE IS CURRENTLY RECEIVING IV FLUIDS, IV ANTIBIOTICS, AND RESPIRATORY TREATMENTS. TODAY, WE WILL OBTAIN A RIGHT FOOT XRAY. OTHERWISE, WE WILL CONTINUE WITH CURRENT PLAN OF CARE. WE WILL FOLLOW UP WITH AM LABS AND CONTINUE TO MONITOR PATIEN - Past Medical Family Social History Past Med/Fam/Surg Hx: No changes since H&P Allergies: Allergies codeine Allergy (Verified 06/26/17 18:05) Penicillins Allergy (Verified 06/26/17 18:05) promethazine Allergy (Verified 06/26/17 18:05) Sulfa (Sulfonamide Antibiotics) [SULFA] Allergy (Verified 06/26/17 18:05) - Review of Systems ROS: No change since H&P - Vital Signs and I&O's Vital Signs: Temperature 98.9 F Pulse Rate [Right] 82 Pulse Rate 84 Respiratory Rate 24 Blood Pressure [Left Arm] 131/60 Blood Pressure [Right Arm] 129/59 Blood Pressure 89/46 O2 Sat by Pulse Oximetry 97 Intake and Output: Intake & Output 05/13/18 05/14/18 05/15/18 05/16/18 11:59 11:59 11:59 11:59 Intake Total 3450 / 3450 1580 / 1580 1420 / 1420 720 / 720 Output Total 2050 / 2050 1800 / 1800 1550 / 1550 850 / 850 Balance 1400 / 1400 -220 / -220 -130 / -130 -130 / -130 - Physical Exam Oriented: Normal Eyes: Normal Ear: Normal Nose: Normal Throat: Normal Respiratory: Generalized, Diminished Cardiovascular: Normal. negative: S3, S4, Murmur : Normal Auscultation: Bowel Sounds: Normal Palpation: Normal Tenderness: Normal Skin: Normal Musculoskeletal: Back:Lumbar, Tender Psychiatric: Normal Mood Description: Calm Affect: Normal Speech Pattern: Clear, Appropriate - Laboratory and Diagnostics Result Diagrams: 05/15/18 05:26 05/15/18 05:26 Labs: 05/13/18 00:50 Blood Blood Culture - Preliminary 05/13/18 00:00 Blood Blood Culture - Preliminary Laboratory WBC 11.0 X10^3/uL (3.6-10.0) H 05/15/18 05:26 RBC 3.33 X10^6/uL (3.5-5.4) L 05/15/18 05:26 Hgb 10.9 g/dL (12.0-16.0) L 05/15/18 05:26 Hct 31.1 % (36.0-47.0) L 05/15/18 05:26 MCV 93.6 fL (80.0-100.0) 05/15/18 05:26 MCH 32.6 pg (27.0-34.0) 05/15/18 05:26 MCHC 34.9 g/dL (33.0-35.0) 05/15/18 05:26 RDW 13.7 % (11.6-16.5) 05/15/18 05:26 Plt Count 253 X10^3/uL (150.0-450.0) 05/15/18 05:26 MPV 8.6 fL (7.4-11.0) 05/15/18 05:26 Neut % (Auto) 52.3 % (42.0-75.0) 05/15/18 05:26 Lymph % (Auto) 32.9 % (21.0-51.0) 05/15/18 05:26 [place] % (Auto) 10.4 % (0.0-13.0) 05/15/18 05:26 Eos % (Auto) 4.0 % (0.9-2.9) H 05/15/18 05:26 Baso % (Auto) 0.4 % (0.2-1.0) 05/15/18 05:26 Neut # (Auto) 5.8 x10^3/uL (2.2-4.8) H 05/15/18 05:26 Lymph # (Auto) 3.6 X10^3/uL (1.3-2.9) H 05/15/18 05:26 [place] # (Auto) 1.1 x10^3/uL (0.3-0.8) H 05/15/18 05:26 Eos # (Auto) 0.4 x10^3/uL (0.0-0.2) H 05/15/18 05:26 Baso # (Auto) 0.0 X10^3/uL (0.0-0.1) 05/15/18 05:26 Absolute Nucleated RBC 0.1 /100WBC 05/15/18 05:26 INR Target Range - 05/13/18 05:43 INR 1.53 (0.8-1.3) H 05/13/18 05:43 APTT 33.8 SECONDS (22.9-36.5) 05/11/18 19:28 PTT Comment - 05/11/18 19:28 Sodium 136 mmol/L (136-145) 05/15/18 05:26 Corrected Sodium TNP 05/15/18 05:26 Potassium 3.9 mmol/L (3.5-5.1) 05/15/18 05:26 Chloride 103 mmol/L (98-107) 05/15/18 05:26 Carbon Dioxide 26.6 mmol/L (21-32) 05/15/18 05:26 BUN 13 mg/dL (7-18) 05/15/18 05:26 Creatinine 0.92 mg/dL (0.55-1.02) 05/15/18 05:26 Est GFR (MDRD) Af Amer > 60 (>60) 05/15/18 05:26 Est GFR (MDRD) Non-Af > 60 (>60) 05/15/18 05:26 Glucose 83 mg/dL (65-99) 05/15/18 05:26 Calcium 8.5 mg/dL (8.5-10.1) 05/15/18 05:26 Corrected Calcium 10.2 mg/dL (8.5-10.1) H 05/15/18 05:26 Magnesium 2.2 mg/dL (1.7-2.9) 05/13/18 05:43 Total Bilirubin 0.50 mg/dL (0.2-1.0) 05/15/18 05:26 AST 21 Units/L (15-37) 05/15/18 05:26 ALT 22 Units/L (12-78) 05/15/18 05:26 Alkaline Phosphatase 84 Units/L (46-116) 05/15/18 05:26 Creatine Kinase 235 Units/L (26-192) H 05/12/18 06:05 CK-MB (CK-2) 2.2 ng/mL (0-4.0) 05/12/18 06:05 CK/CKMB % Calc 0.9 % (<4) 05/12/18 06:05 Troponin I < 0.02 ng/mL (0-1.5) 05/12/18 06:05 Total Protein 6.0 g/dL (6.4-8.2) L 05/15/18 05:26 Albumin 1.9 g/dL (3.4-5.0) L 05/15/18 05:26 Globulin 4.1 g/dL (2.5-4.5) 05/15/18 05:26 Albumin/Globulin Ratio 0.5 Ratio (1.1-2.1) L 05/15/18 05:26 Specimen Type Catherized urine 05/11/18: Urine Color Erika (YELLOW) 05/11/18: Urine Appearance Clear (CLEAR) 05/11/18: Urine pH 5.0 (5.0 - 8.0) 05/11/18: Ur Specific [place] 1.015 (1.000-1.030) 05/11/18: Urine Protein Negative (NEGATIVE) 05/11/18: Urine Glucose (UA) Negative (NEGATIVE) 05/11/18: Urine Ketones Negative (NEGATIVE) 05/11/18: Urine Occult Blood 1+ (NEGATIVE) 05/11/18: Urine Nitrite Positive (NEGATIVE) 05/11/18 23:27 Urine Bilirubin 1+ (NEGATIVE) 05/11/18 23:27 Urine Urobilinogen 1+ (NORMAL) 05/11/18 23: Ur Leukocyte Esterase 1+ (NEGATIVE) 05/11/18 23:27 Urine RBC None seen /HPF (NONE SEEN) 05/11/18 23:27 Urine WBC 0-2 /HPF (NONE SEEN) 05/11/18 23: Ur Squamous Epith Cells Rare /HPF (NEGATIVE) 05/11/18 23: Amorphous Sediment 2+ /HPF (NEGATIVE) 05/11/18 23: Urine Bacteria Negative /HPF (NEGATIVE) 05/11/18 23:27 Ur Culture Indicated? No/not indicated 05/11/18 23:27 - Plan (1) Dehydration Status: Acute Plan: NORMAL SALINE AT 100ML/HR, CONTINUE TO MONITOR (2) Hypotension Status: Resolved Qualifiers: Hypotension type: unspecified hypotension type Qualified Code(s): I95.9 - Hypotension, unspecified Plan: NORMAL SALINE AT 100ML/HR, CONTINUE TO MONITOR (3) Generalized weakness Status: Acute Plan: OBTAIN BRAIN CT (4) Bronchopneumonia Status: Acute Plan: LEVAQUIN IV DAILY, RESPIRATORY TREATMENTS, SUPPLEMENTAL OXYGEN, CONTINUE TO MONITOR
[2018-05-15] MEDS: XARELTO PO SCH (20:47)
[2018-05-15] MEDS: COLACE CAP 100 MG PO SCH (20:47)
[2018-05-15] MEDS: LEVAQUIN PREMIX IV 250 MG 250 MG/50 ML BAG IV SCH (20:47)
[2018-05-15] MEDS: ZyrTEC TAB 10 MG PO SCH (20:47)
[2018-05-15] MEDS: MILK OF MAGNESIA PO SCH (20:48)
[2018-05-15] MEDS: METHADONE HCL PO PRN (21:50)
[2018-05-16] MEDS: NS 1000 ML 1,000 ML IV SCH (03:59)
[2018-05-16 06:32] LABS: BASOPHILS % (AUTO) 0.5 % (0.2-1.0); EOSINOPHILS # (AUTO) 0.5 x10^3/uL (0.0-0.2); EOSINOPHILS % (AUTO) 4.6 % (0.9-2.9); HEMATOCRIT 29.1 % (36.0-47.0); HEMOGLOBIN 10.4 g/dL (12.0-16.0); MEAN CORPUSCULAR HEMOGLOBIN 33.5 pg (27.0-34.0); MEAN CORPUSCULAR HGB CONC 35.7 g/dL (33.0-35.0); MEAN CORPUSCULAR VOLUME 93.8 fL (80.0-100.0); MEAN PLATELET VOLUME 8.6 fL (7.4-11.0); MONOCYTES # (AUTO) 1.3 x10^3/uL (0.3-0.8); MONOCYTES % (AUTO) 12.8 % (0.0-13.0); NEUTROPHILS % (AUTO) 51.1 % (42.0-75.0); PLATELET COUNT 258 X10^3/uL (150.0-450.0); RED CELL DISTRIBUTION WIDTH 13.7 % (11.6-16.5); WHITE BLOOD COUNT 9.8 X10^3/uL (3.6-10.0)
[2018-05-16 06:47] LABS: ANISOCYTOSIS SLIGHT; PLATELET MORPHOLOGY COMMENT NORMAL (NORMAL)
[2018-05-16 06:49] LABS: ALANINE AMINOTRANSFERASE 19 Units/L (12-78); ALBUMIN 1.8 g/dL (3.4-5.0); ALKALINE PHOSPHATASE 83 Units/L (46-116); ASPARTATE AMINO TRANSFERASE 21 Units/L (15-37); BLOOD UREA NITROGEN 10 mg/dL (7-18); CALCIUM 8.4 mg/dL (8.5-10.1); CARBON DIOXIDE 26.5 mmol/L (21-32); CHLORIDE 103 mmol/L (98-107); COR CA(FOR HYPOALB) 10.2 mg/dL (8.5-10.1); CREATININE 0.89 mg/dL (0.55-1.02); SODIUM 136 mmol/L (136-145); TOTAL PROTEIN 5.6 g/dL (6.4-8.2); eGFR NON BLACK RACES > 60 (>60)
--- NOTE | 2018-05-16 07:01 | RAD ---
HISTORY: Shortness of breath Study: Chest AP portable Comparison: 05/15/2018 Findings: The patient is status post median sternotomy and CABG. The heart is enlarged. No definite congestive heart failure is noted. The right lung and left upper lung gruber remain clear. There is persistent i ncreased density in the retrocardiac area of the left lower lobe which could be on the basis of atele ctasis, infiltrate, effusion or combination. The bony thorax is unremarkable. IMPRESSION: Moderate cardiomegaly without congestive heart failure Persistent increased density retrocardiac area left lower lobe. Differential diagnosis as above Reported By:
[2018-05-16] MEDS: DUONEB 0.5 MG/3 MG NEB SCH (09:15)
[2018-05-16] MEDS: ELAVIL PO SCH (09:25)
[2018-05-16] MEDS: NYSTATIN POWDER TOP SCH (09:25)
[2018-05-16 09:54] VITALS: BP 122/65
--- NOTE | 2018-06-09 01:17 | DR.CARTERD ---
- Discharge Summary for: Discharge Summary for Date of:: 05/16/18 - Admission Date Date of Admission: 05/11/18 - Admission Diagnoses Admission Diagnosis: (1) Hypotension (2) Dehydration (3) Generalized weakness - Discharge Date Discharge Date: 05/16/18 - Discharge Diagnoses Discharge Diagnosis: (1) Dehydration (2) Hypotension (3) Generalized weakness (4) Bronchopneumonia - Hospital Course Hospital Course: DAY ONE, MS. BETANCUR IS A 82 YEAR OLD PATIENT OF OURS WHO PRESENTED TO THE EMERGENCY ROOM WITH COMPLAINTS OF WEAKNESS. PATIENT REPORTED THAT SYMPTOMS STARTED A FEW DAYS PRIOR TO ARRIVAL. FAMILY REPORTED THAT THEY WERE CONCERNED THAT PATIENT MAY HAVE TAKEN THE WRONG DOSAGE OF BLOOD PRESSURE MEDICATION. ON ARRIVAL, SHE WAS NOTED TO BE HYPOTENSIVE. VITALS WERE 98.8-86-20-93%-89/46. LABS WERE OBTAINED. ABNORMAL LAB VALUES INCLUDED THE FOLLOWING: WBC 10.3, HGB 11.8, HCT 34.1, POTASSIUM 5.2, BUN 44, CREATININE 1.87, GLUCOSE 132, ALBUMIN 2.7. CARDIAC ENZYMES WITHIN NORMAL LIMITS. URINALYSIS REVEALED WBC 0-2, LEUKOCYTES 1+, BACTERIA NEGATIVE. A BRAIN CT WAS OBTAINED AND REVEALED DIFFUSE ATROPHY AND CHRONIC MICROISCHEMIC DISEASE THROUGHOUT THE DEEP WHITE MATTER WHICH IS UNCHANGED WITH NO ACUTE ABNORMALITY SEEN. EKG REVEALED SINUS RHYTHM WITH HR 68. SHE WAS GIVEN A NORMAL SALINE BOLUS X 2 LITERS AND PLACED ON A DOPAMINE DRIP. SHE WAS ADMITTED TO THE INTENSIVE CARE UNIT FOR FURTHER EVALUATION AND TREATMENT. WE CONTINUED TO MONITOR PATIENT. DAY TWO, SHE WAS ALERT AND ORIENTED, LYING IN BED ON MORNING ROUNDS. SHE CONTINUED WITH GENERALIZED WEAKNESS. SHE ALSO REPORTED LOWER BACK PAIN. ON EXAMINATION, HEART WAS REGULAR IN RATE AND RHYTHM. BILATERAL LUNGS WERE CLEAR TO AUSCULTATION. ABDOMEN WAS ROUND, SOFT, AND NON-TENDER. NORMAL BOWEL SOUNDS WERE NOTED IN ALL QUADRANTS. HER VITALS WERE 97.9-80-21-98%-95/56. LABS WERE OBTAINED. ABNORMAL LAB VALUES INCLUDED THE FOLLOWING: WBC 11.5, HCT 35.6, BUN 26 , CREATININE 1.19, GLUCOSE 146, CALCIUM 8.4, MAGNESIUM 1.6, TOTAL PROTEIN 6.1, ALBUMIN 2.4. CREATINE KINASE WAS SLIGHTLY ELEVATED T 235. EKGS NORMAL. STAFF REPORTED THAT OXYGEN FELL INTO THE 70S THROUGH THE NIGHT WHILE SLEEPING. PATIENT RECENTLY HAD A SLEEP STUDY. WE OBTAINED THOSE REPORTS. WE CONTINUED WITH IV FLUIDS AND ATTEMPTED TO WEAN OFF OF THE DOPAMINE DRIP. WE CONTINUED TO MONITOR PATIENT. DAY THREE, SHE WAS ALERT AND ORIENTED, LYING IN BED ON MORNING ROUNDS. SHE CONTINUED WITH GENERALIZED WEAKNESS WELL LOWER BACK PAIN. ON EXAMINATION, HEART WAS REGULAR IN RATE AND RHYTHM. BILATERAL LUNGS WERE NOTED WITH DIMINISHED LUNG SOUNDS THROUGHOUT. ABDOMEN WAS ROUND, SOFT, AND NON-TENDER. NORMAL BOWEL SOUNDS WERE NOTED IN ALL QUADRANTS. HER VITALS WERE 99.4-74-23-92%- 125/56. LABS WERE OBTAINED. ABNORMAL LAB VALUES INCLUDED THE FOLLOWING: WBC 13.0 , RBC 3.49, HGB 11.4, HCT 33.4, GLUCOSE 115, TOTAL PROTEIN 6.0, ALBUMIN 2.2. WE ATTEMPTED TO WEAN OFF OF THE DOPAMINE THROUGHOUT THE NIGHT, HOWEVER, WE WERE UNSUCCESSFUL. SHE REMAINED ON THE DRIP. WE OBTAINED A CHEST XRAY AND IT REVEALED CARDIOMEGALY WITH PULMONARY VASCULAR CONGESTION. RIGHT BASILAR EDEMA AND/OR INFILTRATE. WE STARTED HER ON LEVAQUIN 250ML IV HS. WE CONTINUED WITH TREATMENT AND ATTEMPTED TO WEAN PATIENT OFF OF DOPAMINE. WE CONTINUED TO MONITOR PATIENT. DAY FOUR, PATIENT CONTINUED TREATMENT FOR HYPOTENSION, DEHYDRATION, AND GENERALIZED WEAKNESS. SHE CONTINUED WITH GENERALIZED WEAKNESS AND ACHING. SHE ALSO REPORTED COMPLAINTS OF SHORTNESS OF BREATH AND SEVERE LEG PAIN AND WEAKNESS. ON EXAMINATION, HEART WAS REGULAR IN RATE AND RHYTHM. BILATERAL LUNGS WERE NOTED WITH DIMINISHED LUNG SOUNDS THROUGHOUT. ABDOMEN WAS ROUND, SOFT, AND NON-TENDER. NORMAL BOWEL SOUNDS WERE NOTED IN ALL QUADRANTS. WEAKNESS NOTED TO BILATERAL LOWER EXTREMITIES. HER VITALS WERE 99.8-80-25-98%-120/57. LABS WERE OBTAINED. ABNORMAL LAB VALUES INCLUDED THE FOLLOWING: WBC 12.9, RBC 3.24, HGB 10.6, HCT 30.6, CALCIUM 8.4, TOTAL PROTEIN 5.7, ALBUMIN 1.9. WE WERE ABLE TO SUCCESSFULLY WEAN PATIENT OFF OF THE DOPAMINE DRIP THROUGH THE NIGHT. WE OBTAINED A CHEST XRAY AND IT REVEALED INCREASING DENSITY AT THE LEFT LUNG BASE CONSISTENT WITH PLEURAL FLUID AND PROBABLE LEFT BASILAR ATELECTASIS OR CONSOLIDATION. SUBSEGMENTAL ATELECTASIS OR CONSOLIDATION AT THE RIGHT LUNG BASE. SHE CONTINUED ON IV FLUIDS AND LEVAQUIN IV DAILY. WE STARTED RESPIRATORY TREATMENTS AND INCENTIVE SPIROMETER Q1H WHILE AWAKE. WE CONTINUED TO MONITOR PATIENT. DAY FIVE, SHE WAS ALERT AND ORIENTED, LYING IN BED ON MORNING ROUNDS. SHE CONTINUED WITH GENERALIZED WEAKNESS, SHORTNESS OF BREATH, AND LEFT LEG PAIN. ON EXAMINATION, HEART WAS REGULAR IN RATE AND RHYTHM. BILATERAL LUNGS WERE NOTED WITH DIMINISHED LUNG SOUNDS THROUGHOUT. ABDOMEN WAS ROUND, SOFT, AND NON- TENDER. NORMAL BOWEL SOUNDS WERE NOTED IN ALL QUADRANTS. WEAKNESS CONTINUED TO BILATERAL LOWER EXTREMITIES. THERE WAS MODERATE TENDERNESS NOTED TO THE RIGHT FOOT. HER VITALS WERE 100.3-77-22-94%-157/66. LABS WERE OBTAINED. ABNORMAL LAB VALUES INCLUDED THE FOLLOWING: WBC 11.0, RBC 3.33, HGB 10.9, HCT 31.1, TOTAL PROTEIN 6.0, ALBUMIN 1.9. WE OBTAINED A CHEST XRAY AND IT REVEALED PERSISTENT LEFT LOWER LOBE ATELECTASIS AND/OR PNEUMONIA WITH A PROBABLE SMALL PLEURAL EFFUSION. NEAR RESOLUTION OF SUBSEGMENTAL ATELECTASIS OR CONSOLIDATION AT THE RIGHT LUNG BASE. SHE CONTINUED TO RECEIVE IV FLUIDS, IV ANTIBIOTICS, AND RESPIRATORY TREATMENTS. 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 WE CONTINUED TREATMENT AND MONITORED. DAY SIX, PATIENT WAS DOING BETTER. SHE DENIED SHORTNESS OF BREATH. ON AUSCULTATION, LUNGS WERE DIMINISHED THROUGHOUT. PATIENT WAS NOTED WITH NON- PRODUCTIVE COUGH. VITAL SIGNS STABLE, AFEBRILE. LABS WNL. WE PLANNED FOR DISCHARGE WITH ORAL ANTIBIOTICS AND HOME HEALTH. INSTRUCTIONS FOR MEDICATIONS AND FOLLOW UP WERE DISCUSSED WITH PATIENT AND FAMILY, BOTH VOICED UNDERSTANDING. PATIENT DISCHARGED HOME IN STABLE CONDITION WITH FAMILY. - Discharge Medications Discharge Medications: Home Medication List alprazolam [Xanax] 0.25 mg PO BID PRN 05/11/18 [History] cetirizine 10 mg PO HS 05/11/18 [History] cyclobenzaprine 5 mg PO TID PRN 05/11/18 [History] diazepam 5 mg PO TID PRN 05/11/18 [History] furosemide [Lasix] 40 mg PO DAILY PRN 05/11/18 [History] potassium chloride 10 meq PO DAILY PRN 05/11/18 [History] ipratropium-albuterol 1 ea NEB TID #50 ml 05/16/18 [Rx] levofloxacin [Levaquin] 250 mg PO DAILY #7 tab 05/16/18 [Rx] nystatin [Nystop] 1 applic TOP BID #1 unit 05/16/18 [Rx] Prescriptions: ipratropium-albuterol Juan Diego Marcus levofloxacin [Levaquin] Juan Diego Marcus nystatin [Nystop] Juan Diego Marcus methadone [Dolophine] 10 mg PO Q6H PRN 01/13/13 amitriptyline 20 mg PO HS 01/29/14 rivaroxaban [Xarelto] 20 mg PO DAILY 01/29/14 amitriptyline 10 mg PO DAILY 06/26/17 - Discharge Disposition Discharge Disposition: PATIENT IS TO FOLLOW UP IN OUR OFFICE IN ONE WEEK.
== END 2018-05-16 13:00 | disposition home health service (06) | DRG 314 ==
LOC: ER 18:47 → ICU 21:32
PROVIDERS: ADMIT Internal Medicine; ATTEND Internal Medicine
DX: I10 Essential (primary) hypertension; R26.89 Other abnormalities of gait and mobility; J18.0 Bronchopneumonia, unspecified organism; R00.1 Bradycardia, unspecified; R94.31 Abnormal electrocardiogram [ECG] [EKG]; E86.0 Dehydration; I51.7 Cardiomegaly; I95.89 Other hypotension; M54.5 Low back pain; R53.1 Weakness; G47.30 Sleep apnea, unspecified; E78.2 Mixed hyperlipidemia; I25.10 Atherosclerotic heart disease of native coronary artery without angina pectoris; R79.1 Abnormal coagulation profile
CPT/HCPCS: 36415; 70450; 71010; 71045; 73630; 80053; 81001; 82550; 82553; 83735; 84484; 85025; 85610; 85730; 87040; 93005; 94640; 94669; 96365; 96367; 96374; 97110; 97112; 97116; 97163; 97167; 97530; 97535; 99284; 99285; A4222; S0109; J1265; J1956; J3475; J3490; J7030; J7613; J7620